=== PATIENT | female | born 1945 | race Caucasian/White ===

== ENCOUNTER 2025-04-06 11:52 | Outpatient (OUT) | payer MEDICARE, OTHER, SELFPAY ==
--- OUTSIDE RECORDS SUMMARY | 2025-04-06 11:54 | XMS_ITS | Encounter Summary ---
Author Organization [facility] Address [address] [facility] [place] [address] Care Team Providers Care Animal Chiropractor Name Role Phone Jakub Sands MD Primary Care Provider +[phone] Encounter Details Date Type Department Care Team (Latest Contact Info) Description 03/24/2025 Travel Social History Tobacco Use Types Packs/Day Years Used Date Smoking Tobacco: Never Smokeless Tobacco: Never Alcohol Use Standard Drinks/Week Comments Never 0 (1 standard drink = 0.6 oz pur e alcohol) Comments Unknown Sex and Gender Information Value Date Recorded Sex Assigned at Not on file Legal Sex Female 6:46 PM EDT Gender Identity Not on file Sexual Orientation Not on file documented as of this encounter Plan of Treatment Upcoming Encounters Date Type Department Care Team (Late st Contact Info) Description 10/06/2026 10:30 AM EST Office Visit [facility] [address] [place] [phone] Kevin Greer, PA [address] [place] [address] documented as of this encounter Visit Diagnoses Not on filedocumented in this encounter Care Teams Animal Chiropractor Relationship Specialty Start Date End Date Jakub Sands MD PCP - General Family Medicine 03/18/24 documented as of this encounter
--- OUTSIDE RECORDS SUMMARY | 2025-04-06 11:54 | XMS_ITS | Encounter Summary ---
Author Organization [employer] tem Address [facility] [place]-[id number] [address] [place] [address] Care Team Providers Care Sap Fico Architect Name Role Phone SreekanthJakub matias Primary Care Provider + [phone] Encounter Details Date Type Department Care Team (Late st Contact Info) Description 04/08/2024 Telephone [facility] - Family Medicine [address] [place] [phone] Marry Garcia CMA Social History Tobacco Use Types Packs/Day Years Used Date Smoking Tobacco: Never Alcohol Use Standard Drinks/Week Comments Defer 0 (1 standard drink = 0.6 oz pur e alcohol) PHQ-2 Answer Date Recorded Total Score 0 03/08/2024 Childcare Answer Date Recorded Childcare Unknown 04/21/2019 Employment Answer Date Recorded Employment Unknown 04/21/2019 Hunger Screening Answer Date Recorded Within the past 12 months we worried whether our food would run out before we got money to buy more. Never True 03/13/2024 Within the past 12 months th e food we bought just didn't last and we didn't have money to get more. Never True 03/13/2024 Purpose - Life Answer Date Recorded Purpose and direction in life Unknown Comments Unknown Sex and Gender Information Value Date Recorded Sex Assigned at Not on file Legal Sex Female 11:21 AM EDT Gender Identity Not on file Sexual Orientation Not on file documented as of this encounter Miscellaneous Notes * Telephone Encounter - Marry Garcia CMA - 04/08/2024 3:51 PM EDT Pt called stated she has really bad diarrhea for a week now and wanted to know if she could stop the mounjaro for a few weeks and asked if you could send something in for the diarrhea? * Telephone Encounter - VAL Hightower - 04/08/2024 3:51 PM EDT What else is going on, this is kind of an odd side effect of mounjaro, not that it can't happen butit is usually more associated with constipation that diarrhea. Has she felt ill in any other way? How often is she going? Does she have urgency, incontinence? This sounds more like a gastroenteritis if it has suddenly appeared. * Telephone Encounter - Linda Khan CMA - 04/08/2024 3:51 PM EDT Left message to call back documented in this encounter Plan of Treatment Upcoming Encounters Date Type Department Care Team (Late st Contact Info) Description 07/20/2025 11:00 AM EDT Office Visit [facility] - Family Medicine [address] [place] [address] Jakub Sands DO [address] [facility] [place] [address] documented as of this encounter Visit Diagnoses Not on filedocumented in this encounter Additional Health Concerns Assessment Noted Time PHQ-9 Depression Total Score: 0 03/08/20 24 9:36 AM EDT A Body Mass Index follow-up plan has been documented for the patient 03/08/2024 12:59 PM EDT documented as of this encounter Care Teams Sap Fico Architect Relationship Specialty Start Date End Date Jakub Sands DO [address] [place] [address] PCP - General Family Medicine 07/13/24 Salma Pacheco CCM Nurse - [employer] 08/12/24 documented as of this encounter
--- OUTSIDE RECORDS SUMMARY | 2025-04-06 11:54 | XMS_ITS | Encounter Summary ---
Author Organization [employer] Address [facility] [place][id number] [address] [place] [address] Care Team Providers Care Roll Or Tape Edge Machine Operator Name Role Phone Jakub Sands DO Primary Care Provider + [phone] Encounter Details Date Type Department Care Team ([facility] Contact Info) Description 10/15/2023 Orders Only [facility] - Family Medicine [address] [place] [phone] Magali Del Cid, DINKEY ENGINE MECHANIC-FIRER [employer] [address] [place] [address] [place] [address] Social History Tobacco Use Types Packs/Day Years Used Date Smoking Tobacco: Never Alcohol Use Standard Drinks/Week Comments Defer 0 (1 standard drink = 0.6 oz pur e alcohol) PHQ-2 Answer Date Recorded Total Score 6 10/01/2023 Childcare Answer Date Recorded Childcare Unknown 04/21/2019 Employment Answer Date Recorded Employment Unknown 04/21/2019 Hunger Screening Answer Date Recorded Within the past 12 months we worried whether our food would run out before we got money to buy more. Never True 10/01/2023 Within the past 12 months th e food we bought just didn't last and we didn't have money to get more. Never True 10/01/2023 Purpose - Life Answer Date Recorded Purpose and direction in life Unknown Comments Unknown Sex and Gender Information Value Date Recorded Sex Assigned at Not on file Legal Sex Female 11:21 AM EDT Gender Identity Not on file Sexual Orientation Not on file documented as of this encounter Plan of Treatment Upcoming Encounters Date Type Department Care Team ([facility] Contact Info) Description 07/20/2025 11:00 AM EDT Office Visit [facility] - Family Medicine [address] [place] [address] Jakub Sands DO [address] [facility] [place] [address] documented as of this encounter Procedures Procedure Name Priority Date/Time Associated Diagnosis Comments HM MAMMOGRAPHY Routine 10/08/2023 9:14 AM EST documented in this encounter Results * HM MAMMOGRAPHY (10/08/2023 9:14 AM EST) Anatomical Region Laterality Modality Other us Scanning Provider External HEALTH MAINTENANCE Fi nal Result documented in this encounter Visit Diagnoses Not on filedocumented in this encounter Additional Health Concerns Assessment Noted Time PHQ-9 Depression Total Score: 6 10/01/20 23 11:37 AM EST A Body Mass Index follow-up plan has been documented for the patient 01/13/2023 6:57 AM EST documented as of this encounter Care Teams Roll Or Tape Edge Machine Operator Relationship Specialty Start Date End Date Jakub Sands DO [address] [facility] [place] [address] PCP - General Family Medicine 07/13/24 Salma Pacheco [facility] 08/12/24 documented as of this encounter
--- OUTSIDE RECORDS SUMMARY | 2025-04-06 11:54 | XMS_ITS | Encounter Summary ---
Author Organization [employer] Address [facility] [place]-[id number] [address] [place] [address] Care Team Providers Care Heel Builder Machine Name Role Phone Jakub Sands DO Primary Care Provider + [phone] Reason for Visit * Reason Comments Med Refill Encounter Details Date Type Department Care Team (Late st Contact Info) Description 07/19/2022 Refill [facility] - Family Medicine [address] [place] [phone] Magali Del Cid, NUVIA-TROUSSEAU CONSULTANT [address] [place] [address] Social History Tobacco Use Types Packs/Day Years Used Date Smoking Tobacco: Never Assessed Childcare Answer Date Recorded Childcare Unknown 04/21/2019 Employment Answer Date Recorded Employment Unknown 04/21/2019 Purpose - Life Answer Date Recorded Purpose [...] - Family Medicine [address] [place] [phone] Jakub Sands DO [address] [place] [address] documented as of this encounter Visit Diagnoses Not on filedocumented in this encounter Care Teams Heel Builder Machine Relationship Specialty Start Date End Date Jakub Sands DO [address] [facility] [place] [address] PCP - General Family Medicine 07/13/24 Salma Pacheco CCM Nurse - [employer] 08/12/24 documented as of this encounter
--- OUTSIDE RECORDS SUMMARY | 2025-04-06 11:54 | XMS_ITS | Encounter Summary ---
Author Organization [employer] Address [facility] [place]-[id number] [address] [place] [address] Care Team Providers Care Pediatric Social Worker Name Role Phone Jakub Sands DO Primary Care Provider + [phone] Encounter Details Date Type Department Care Team (Late st Contact Info) Description 09/22/2024 Telephone [facility] - Family Medicine [address] [place] [phone] Jakub Sands DO [address], [facility] [place] [address] Social History Tobacco Use Types Packs/Day Years Used Date Smoking Tobacco: Never Smokeless Tobacco: Never Alcohol Use Standard Drinks/Week Comments Defer 0 (1 standard drink = 0.6 oz pur e alcohol) [facility] Utilities Answer Date Recorded In the past 12 months has [employer] electric, gas, oil, or water company threatened to shut off services in your home? No 09/03/2024 Social Connection and Isolat ion Panel [NHANES] Answer Date Recorded In a typical week, how many times do you talk on the phone with family, friends, or neighbors? More than three times a week 09/03/2024 How often do you get togethe r with friends or relatives? More than three times a week 09/03/2024 How often do you attend chur ch or nondenominational services? Never 09/03/2024 Do you belong to any clubs o r organizations such as denominational groups, unions, fraternal or athletic groups, or school groups? No 09/03/2024 How often do you attend meet ings of the clubs or organizations you belong to? Never 09/03/2024 Are you , , di vorced, , never , or living with a partner? 09/03/2024 AUDIT-C Answer Date Recorded Q1: How often do you have a drink containing alcohol? Never 09/03/2024 Q2: How many drinks containi ng alcohol do you have on a typical day when you are drinking? Patient does not drink Q3: How often do you have si x or more drinks on one occasion? Never 09/03/2024 Overall Financial Resource Strain (CARDIA) Answe r Date Recorded How hard is it for you to pa y for the very basics like food, housing, medical care, and heating? Not hard at all 09/03/2024 PHQ-2 Answer Date Recorded Total Score 0 06/03/2024 [facility] - Occupational Stress Questionnaire Answer Date Recorded Do you feel stress - tense, restless, nervous, or anxious, or unable to sleep at night because your mind is troubled all the time - these days? Only a little 09/03/2024 Exercise Vital Sign Answer Date Recorde d On average, how many days pe r week do you engage in moderate to strenuous exercise (like a brisk walk)? 0 days 09/03/2024 On average, how many minutes do you engage in exercise at this level? 0 min 09/03/2024 PRAPARE - Transportation Answer Date Re corded In the past 12 months, has l ack of transportation kept you from medical appointments or from getting medications? No 08/11 In the past 12 months, has l ack of transportation kept you from meetings, work, or from getting things needed for daily living? No 09/03/2024 Housing Instability Answer Date Recorde d Are you worried or concerned that in the next two months you may not have stable housing that you own, rent or stay in as a part of a household? No 09/03/2024 Childcare Answer Date Recorded Do problems getting child ca re make it difficult for you to work or study? No 09/03/2024 Employment Answer Date Recorded Do you need help finding a [facility] career center and/or a training program? No 09/03/2024 Hunger Screening Answer Date Recorded Within the past 12 months we worried whether our food would run out before we got money to buy more. Never True 07/13/2024 Within the past 12 months th e food we bought just didn't last and we didn't have money to get more. Never True 07/13/2024 Purpose - Life Answer Date Recorded I have a purpose and direction in my life. Agree 09/03/2024 Comments Unknown Sex and Gender Information Value Date Recorded Sex Assigned at Not on file Legal Sex Female 11:21 AM EDT Gender Identity Not on file Sexual Orientation Not on file documented as of this encounter Miscellaneous Notes * Telephone Encounter - Jakub Sands DO - 09/22/2024 11:57 AM EST I can send in a rx for colchicine if she would like documented in this encounter Plan of Treatment Upcoming Encounters Date Type Department Care Team (Late st Contact Info) Description 07/20/2025 11:00 AM EDT Office Visit [facility] - Family Medicine [address] [place] [address] Jakub Sands DO [address] [facility] [place] [address] documented as of this encounter Visit Diagnoses Diagnosis Essential hypertension- Primary Unspecified essential hypertension Chronic heart failure with preserved ejection fraction (CMS-HCC) documented in this encounter Additional Health Concerns Assessment Noted Time PHQ-9 Depression Total Score: 0 06/03/20 24 2:58 PM EDT A Body Mass Index follow-up plan has been documented for the patient 03/08/2024 12:59 PM EDT documented as of this encounter Care Teams Pediatric Social Worker Relationship Specialty Start Date End Date Jakub Sands DO [address] [facility] [place] [address] PCP - General Family Medicine 07/13/24 Salma Pacheco CCM Nurse - [employer] 08/12/24 documented as of this encounter
--- OUTSIDE RECORDS SUMMARY | 2025-04-06 11:54 | XMS_ITS | Encounter Summary ---
Author Organization [employer] Address [facility] [place]-[id number] [address] [place] [address] Care Team Providers Care Project Manager Entertainment And Media Name Role Phone SreekanthJakub matias Primary Care Provider + [phone] Encounter Details Date Type Department Care Team (Late st Contact Info) Description 03/12/2024 Telephone [facility] - Family Medicine [address] [place] [phone] Marry Garcia CMA Social History Tobacco Use [...] Telephone Encounter - Marry Garcia CMA - 03/12/2024 12:18 PM EDT Pt called stated that her foot pain is no better and has to use her walker and whant to know if there was a cream or something to numb the pain? * Telephone Encounter - VAL Hightower - 03/12/2024 12:18 PM EDT She can try topical voltaren gel, this is available over the counter * Telephone Encounter - Marry Garcia CMA - 03/12/2024 12:18 PM EDT She said ok thank you documented in this encounter Plan of Treatment Upcoming Encounters Date Type Department Care Team (Late st Contact Info) Description 07/20/2025 11:00 AM EDT Office Visit [facility] - Family Medicine [address] [place] [address] Jakub Sands DO [address], [place] [place] [address] documented as of this encounter Visit Diagnoses Not on filedocumented in this encounter Additional Health Concerns Assessment Noted Time PHQ-9 Depression Total Score: 0 03/08/20 24 9:36 AM EDT A Body Mass Index follow-up plan has been documented for the patient 03/08/2024 12:59 PM EDT documented as of this encounter Care Teams Project Manager Entertainment And Media Relationship Specialty Start Date End Date Jakub Sands DO [address] [facility] [place] [address] PCP - General Family Medicine 07/13/24 Salma Pacheco [facility] 08/12/24 documented as of this encounter
--- OUTSIDE RECORDS SUMMARY | 2025-04-06 11:54 | XMS_ITS | Clinical Summary ---
Author Organization [facility] Address [address] [place] [address] Care Team Providers Care Clinical Laboratory Scientist Name Role Phone Jakub Sands MD Primary Care Provider [phone] Allergies Active Allergy Reactions Criticality Noted Date Comments Ibuprofen Unknown,Rash Low 09/10/2017 Lidocaine Itching,Swelling,Unknown High 09/15/2017 Other Reaction(s): Swelling of the Eye Meperidine 09/05/2022 Nalbuphine Unknown Low 09/15/2017 Other Reaction(s): Other (See Comments) Pt states makes me loopy Other Reaction(s): become very giggly and unsteady Procaine Unknown 09/13/2019 Other Reaction(s): swelling of eye Medications oxyCODONE-aceta minophen (Percocet) 5-325 MG tablet Acti ve atorvastatin (Lipitor) 40 MG tablet Take 40 mg by mouth in the morning. 03/15/2024 Active ASPIRIN 81 PO Take 81 mg by mouth Daily Active Mounjaro 10 MG/0.5ML solution pen-injector Inject 0.5 mL under the skin every 7 (seven) days 11/17/2023 Active allopurinol (Zyloprim) 300 MG tablet Take 300 mg by mouth 06/04/2024 Active bisoprolol-hydr oCHLOROthiazide (Ziac) 10-6.25 MG tablet Take 1 tablet by mouth in the morning. 03/22/2024 Active fluticasone (Flonase) 50 MCG/ACT nasal spray 1 spray in each nostril Nasally Once a day Active BD Pen Needle Subha 2nd Gen 32G X 4 MM misc USE DIRECTED EVERY MORNING AND EVERY NIGHT AT BEDTIME 12/17/2023 Active pantoprazole (ProtoNix) 40 MG EC tablet Take 40 mg by mouth Daily as needed 06/03/2024 Active metFORMIN (Glucophage) 1000 MG tablet every 12 (twelve) hours Active olmesartan (BENIcar) 20 MG tablet Take 20 mg by mouth Daily 11/14/2023 Active insulin glargine (Lantus) 100 UNIT/ML injection Inject 30 Units under the skin at bedtime Active colchicine 0.6 MG tablet Take 0.6 mg by mouth 2 (two) times a day as needed 09/24/2024 Active Active Problems Problem Noted Date Diagnosed Date Arthritis of right shoulder region 07/30/2024 Artificial knee joint present 07/30/2024 Diabetes mellitus 07/30/2024 Difficulty walking 07/30/2024 Hyperlipidemia 07/30/2024 Left hand paresthesia 07/30/2024 Primary localized osteoarthrosis of shoulder reg ion 07/30/2024 Primary osteoarthritis of left knee 07/30/2024 Internal derangement of right shoulder Rotator cuff arthropathy of right shoulder 07/30 Shoulder arthritis 07/30/2024 Shoulder joint pain 07/30/2024 Status post left knee replacement 07/30/2024 Acute on chronic heart failu re with preserved ejection fraction 03/08/2024 Essential hypertension 09/03/2023 REBA (obstructive sleep apnea) 09/03/2023 Primary osteoarthritis of both knees 09/03/2023 Arthritis of right foot 02/11/2023 Obesity, morbid 02/11/2023 Nonrheumatic mitral valve regurgitation 10/28/20 22 (HFpEF) heart failure with preserved ejection fr action 09/05/2022 SOB (shortness of breath) 09/05/2022 Presence of right artificial shoulder joint 02/09 Encounters Date Type Department Care Team Description 03/24/2025 Travel from Last 3 Months Immunizations Immunization Administration Dates Next Due Influenza, High Dose Seasonal, Preservative Free 01/28/2020 Influenza, Seasonal, Quadrivalent, Adjuvanted ,09/06/2022 Influenza, Unspecified 08/29/2014 Influenza, injectable, MDCK, preservative free, quadrivalent 08/25/2018 Pneumococcal Conjugate PCV 13 11/18/2014 Pneumococcal Polysaccharide PPSV23 07/04/2010 Tdap 11/12/2023,03/28/2009 Zoster, live 11/30/2016 Social History Tobacco Use Types Packs/Day Years Used Date Smoking Tobacco: Never Smokeless Tobacco: Never Tobacco Cessation:Counseling Given: Not Answered Alcohol Use Standard Drinks/Week Comments Never 0 (1 standard drink = 0.6 oz pur e alcohol) Comments Unknown Sex and Gender Information Value Date Recorded Sex Assigned at Not on file Legal Sex Female 6:46 PM EDT Gender Identity Not on file Sexual Orientation Not on file Last Filed Vital Signs Vital Sign Reading Time Taken Comments Blood Pressure 140/94 08/04/2024 1:29 PM EDT Pulse 68 08/04/2024 1:29 PM EDT Temperature - - Respiratory Rate - - Oxygen Saturation - - Inhaled Oxygen Concentration - - Weight 111 kg (245 lb) 08/04/2024 1:29 PM EDT Height 165.1 cm (5' 5 ) 08/04/2024 1:29 PM EDT Body Mass Index 40.77 08/04/2024 1:29 PM EDT Plan of Treatment Upcoming Encounters Date Type Department Care Team (Late st Contact Info) Description 10/06/2026 10:30 AM EST Office Visit [facility] [address] [place] [address] Kevin Greer PA [address] [place] [address] Health Maintenance Due Date Last Done Comments Pneumococcal Vaccine: 65+ Ye ars (3 of 3 - PCV20 or PCV21) 11/18/2019 11/18/2014, 07/04/2010 Influenza Vaccine Completed 11/04/2024, , 09/06/2022, Additional history exists Insurance MEDICARE [facility] Care Teams Clinical Laboratory Scientist Relationship Specialty Start Date End Date Jakub Sands MD PCP - General Family Medicine 03/18/24
--- OUTSIDE RECORDS SUMMARY | 2025-04-06 11:54 | XMS_ITS | Encounter Summary ---
Author Organization [employer] Address [facility] [id number] [address] [place] [address] Care Team Providers Care Pack Operator Name Role Phone Jakub Sands DO Primary Care Provider + [phone] Encounter Details Date Type Department Care Team ([facility] Contact Info) Description 12/25/2023 Orders Only [facility] Internal Medicine - Family Medicine [address] [place] [phone] Magali Del Cid, FLAME GOUGER-PHYSICIAN/ALLERGY/IMMUNOLOGY [address] [facility] [place] [address] Social History Tobacco Use Types Packs/Day Years Used Date Smoking Tobacco: Never Alcohol Use Standard Drinks/Week Comments Defer 0 (1 standard drink = 0.6 oz pur e alcohol) PHQ-2 Answer Date Recorded Total Score 5 10/29/2023 Childcare Answer Date Recorded Childcare Unknown 04/21/2019 Employment Answer Date Recorded Employment Unknown 04/21/2019 Hunger Screening Answer Date Recorded Within the past 12 months we worried whether our food would run out before we got money to buy more. Never True 12/15/2023 Within the past 12 months th e food we bought just didn't last and we didn't have money to get more. Never True 12/15/2023 Purpose - Life Answer Date Recorded Purpose and direction in life Unknown Comments Unknown Sex and Gender Information Value Date Recorded Sex Assigned at Not on file Legal Sex Female 11:21 AM EDT Gender Identity Not on file Sexual Orientation Not on file documented as of this encounter Plan of Treatment Upcoming Encounters Date Type Department Care Team ([facility] Contact Info) Description 07/20/2025 11:00 AM EDT Office Visit [facility] - Family Medicine [address] [address] Jakub Sands DO [address] [place] [address] documented as of this encounter Procedures Procedure Name Priority Date/Time Associated Diagnosis Comments DIABETES EYE EXAM Routine 12/04/2023 12:43 PM EST documented in this encounter Results * HM DIABETES EYE EXAM (12/04/2023 12:43 PM EST) Magali Del Cid FLAME GOUGER-PHYSICIAN/ALLERGY/IMMUNOLOGY HEALTH MAINTENANCE Final Re sult MANUALLY TRANSCRIBED RESULTS documented in this encounter Visit Diagnoses Not on filedocumented in this encounter Additional Health Concerns Assessment Noted Time PHQ-9 Depression Total Score: 5 10/29/20 23 11:46 AM EST A Body Mass Index follow-up plan has been documented for the patient 01/13/2023 6:57 AM EST documented as of this encounter Care Teams Pack Operator Relationship Specialty Start Date End Date Jakub Sands DO [address] [place] [address] PCP - General Family Medicine 07/13/24 Salma Pacheco [facility] 08/12/24 documented as of this encounter
--- OUTSIDE RECORDS SUMMARY | 2025-04-06 11:54 | XMS_ITS | Encounter Summary ---
Author Organization [facility] Address [facility] [place]-[id number] [address] [place] [address] Care Team Providers Care Sql Server Consultant Name Role Phone Jakub Sands DO Primary Care Provider + [phone] Reason for Visit * Reason Onset Date Comments Med Refill 11/12/2023 Encounter Details Date Type Department Care Team (Late Contact Info) Description 11/12/2023 Refill [facility] - Family Medicine [address] [place] [phone] Magali Del Cid, COMPLETION MANAGER-CURATOR NATURAL HISTORY MUSEUM [address] [place] [address] Social History Tobacco Use Types Packs/Day Years [...] got money to buy more. Never True 10/29/2023 Within the past 12 months th e food we bought just didn't last and we didn't have money to get more. Never True 10/29/2023 Purpose - Life Answer Date Recorded Purpose [...] Medicine - Family Medicine [address] [place] [address] Jakub Sands DO [address], [place] [address] documented as of this encounter Visit Diagnoses Not on filedocumented in this encounter Additional Health Concerns Assessment Noted Time PHQ-9 Depression Total Score: 5 10/29/20 23 11:46 AM EST A Body Mass Index follow-up plan has been documented for the patient 01/13/2023 6:57 AM EST documented as of this encounter Care Teams Sql Server Consultant Relationship Specialty Start Date End Date Jakub Sands DO [address], [facility] [place] [address] PCP - General Family Medicine 07/13/24 Salma Pacheco [facility] 08/12/24 documented as of this encounter
--- OUTSIDE RECORDS SUMMARY | 2025-04-06 11:54 | XMS_ITS | Encounter Summary ---
Author Organization [facility] [employer] [facility] Address [facility] [id number] [address] [place] [address] Care Team Providers Care Melter Supervisor Open Hearth Furnace Name Role Phone Jakub Sands DO Primary Care Provider + [phone] Reason for Visit * Reason Onset Date Comments Med Refill 05/04/2024 Encounter Details Date Type Department Care Team (Late st Contact Info) Description 05/04/2024 Telephone [facility] Internal Medicine - Family Medicine [address] [place] [place] [phone] Marilyn Mao CMA Med Refill Social History Tobacco Use Types Packs/Day Years [...] encounter Miscellaneous Notes * Telephone Encounter - Marilyn Mao CMA - 05/04/2024 8:44 AM EDT Patient was in the ER back in March for Gout. She is having a flare up and wants to know if you can call her something in for it. * Telephone Encounter - Jakub Christian DO Shavon - 05/04/2024 8:44 AM EDT Okay but she should make an appointment to discuss suppressive therapy since she has had 2 flare-ups recently * Telephone Encounter - Marilyn Mao CMA - 05/04/2024 8:44 AM EDT Spoke with the patient and scheduled her an appt documented in this encounter Plan of Treatment Upcoming Encounters Date Type Department Care Team (Late st Contact Info) Description 07/20/2025 11:00 AM EDT Office Visit [facility] - Family Medicine [address] [place] [address] Jakub Sands DO [address], [facility] [place] [address] documented as of this encounter Visit Diagnoses Not on filedocumented in this encounter Additional Health Concerns Assessment Noted Time PHQ-9 Depression Total Score: 0 03/08/20 9:36 AM EDT A Body Mass Index follow-up plan has been documented for the patient 03/08/2024 12:59 PM EDT documented as of this encounter Care Teams Melter Supervisor Open Hearth Furnace Relationship Specialty Start Date End Date Jakub Sands DO [address] [place] [address] PCP - General Family Medicine 07/13/24 Salma Pacheco CCM Nurse - [facility] 08/12/24 documented as of this encounter
--- OUTSIDE RECORDS SUMMARY | 2025-04-06 11:54 | XMS_ITS | Encounter Summary ---
Author Organization [employer] Address [facility] [place]-[id number] [address] [place] [address] Care Team Providers Care Railway Track Plant Operator Name Role Phone Jakub Sands DO Primary Care Provider + [phone] Encounter Details Date Type Department Care Team ([facility] Contact Info) Description 04/08/2024 Orders Only [facility] Internal Medicine - Family Medicine [address] [place] [phone] Magali Del Cid, POISING INSPECTOR-PATHOLOGY LABORATORY TECHNOLOGIST [address] [place] [address] Social History Tobacco Use Types Packs/Day Years [...] Upcoming Encounters Date Type Department Care Team ([facility] Contact Info) Description 07/20/2025 11:00 AM EDT Office Visit [facility] - Family Medicine [address] [place] [address] Jakub Sands DO [address] [facility] [place] [address] documented as of this encounter Visit Diagnoses Not on filedocumented in this encounter Additional Health Concerns Assessment Noted Time PHQ-9 Depression Total Score: 0 03/08/20 24 9:36 AM EDT A Body Mass Index follow-up plan has been documented for the patient 03/08/2024 12:59 PM EDT documented as of this encounter Care Teams Railway Track Plant Operator Relationship Specialty Start Date End Date Jakub Sands DO [address] [place] [address] PCP - General Family Medicine 07/13/24 Salma Pacheco [facility] 08/12/24 documented as of this encounter
--- OUTSIDE RECORDS SUMMARY | 2025-04-06 11:54 | XMS_ITS | Encounter Summary ---
Author Organization [employer] Address [facility] [id number] [address] [place] [address] Care Team Providers Care Repairer Welding Equipment Name Role Phone Jakub Sands Primary Care Provider + [phone] Encounter Details Date Type Department Care Team (Late st Contact Info) Description 05/10/2024 Telephone [facility] - Family Medicine [address] [place] [phone] Marry Garcia CMA Social History Tobacco Use [...] Telephone Encounter - Marry Garcia CMA - 05/10/2024 4:20 PM EDT Pt called wanting a refill of her patroprazole but it looks like she doesn't take it anymore ? * Telephone Encounter - Jakub Sands DO - 05/10/2024 4:20 PM EDT Yes looks like Magali stopped it. She should take it every day. She has been taking it? * Telephone Encounter - Marry Garcia CMA - 05/10/2024 4:20 PM EDT She stated she only takes it once a week when needed * Telephone Encounter - Marry Garcia CMA - 05/10/2024 4:20 PM EDT She stated she has enough till she sees you the 25th and you guys can talk about it then documented in this encounter Plan of Treatment Upcoming Encounters Date Type Department Care Team (Late st Contact Info) Description 07/20/2025 11:00 AM EDT Office Visit [facility] - Family Medicine [address] [place] [address] Jakub Sands DO [address] [facility] [address] documented as of this encounter Visit Diagnoses Not on filedocumented in this encounter Additional Health Concerns Assessment Noted Time PHQ-9 Depression Total Score: 0 03/08/20 24 9:36 AM EDT A Body Mass Index follow-up plan has been documented for the patient 03/08/2024 12:59 PM EDT documented as of this encounter Care Teams Repairer Welding Equipment Relationship Specialty Start Date End Date Jakub Sands DO [address] [place] [address] PCP - General Family Medicine 07/13/24 Salma Pacheco [facility] 08/12/24 documented as of this encounter
--- OUTSIDE RECORDS SUMMARY | 2025-04-06 11:54 | XMS_ITS | Encounter Summary ---
Author Organization [employer] Address [facility] [id number] [address] [place] [address] Care Team Providers Care Flour Distributor Name Role Phone Jakub Sands Primary Care Provider + [phone] Encounter Details Date Type Department Care Team (Late st Contact Info) Description 09/07/2024 Telephone [facility] - Family Medicine [address] [place] [phone] Norm Mccarthy CMA Social History Tobacco Use Types Packs/Day Years Used Date Smoking Tobacco: Never Smokeless Tobacco: Never Alcohol Use Standard Drinks/Week Comments Defer 0 (1 standard drink = 0.6 oz pur e alcohol) [facility] Utilities Answer Date Recorded In the past 12 months has [employer] electric, gas, oil, or water company threatened [...] often do you attend chur ch or jehovah's witness services? Never 09/03/2024 Do you belong to any clubs o r organizations such as pentecostal groups, unions, fraternal or athletic groups, or [...] Answer Date Recorded Total Score 0 06/03/2024 [facility] [place] of Occupat ional Health - Occupational Stress [...] Recorded Do you need help finding a [facility] career center and/or a training program? [...] encounter Miscellaneous Notes * Telephone Encounter - Norm Mccarthy CMA - 09/07/2024 9:23 AM EDT ----- Message from Dr. Jakub Sands DO sent at 09/04/2024 1:36 PM EDT ----- Her A1c went up to 6.3%. we discussed cutting back on insulin and then increasing mounjaro but she just got a 3 month supply. Have her cut back to 26 units on insulin and in a couple months call her to send in higher Mounjaro dose. Her BMP was ok documented in this encounter Plan of Treatment Upcoming Encounters Date Type Department Care Team (Late st Contact Info) Description 07/20/2025 11:00 AM EDT Office Visit [facility] - Family Medicine [address] [place] [phone] Jakub Sands DO [address], [facility] [place] [address] documented as of this encounter Visit Diagnoses Not on filedocumented in this encounter Additional Health Concerns Assessment Noted Time PHQ-9 Depression Total Score: 0 06/03/20 24 2:58 PM EDT A Body Mass Index follow-up plan has been documented for the patient 03/08/2024 12:59 PM EDT documented as of this encounter Care Teams Flour Distributor Relationship Specialty Start Date End Date Jakub Sands DO [address], [facility] [place] [address] PCP - General Family Medicine 07/13/24 Salma Pacheco CCM Nurse - [facility] 08/12/24 documented as of this encounter
--- OUTSIDE RECORDS SUMMARY | 2025-04-06 11:55 | XMS_ITS | Clinical Summary ---
Author Organization [facility] Address [address] [place] [place] [address] Care Team Providers Care Lung Splitter Name Role Phone Jakub Sands Primary Care Provider + [phone] Allergies Active Allergy Reactions Criticality Noted Date Comments Lidocaine Swelling High 09/15/2017 Ibuprofen 09/10/2017 Nalbuphine Hcl Other (See Comments) Low 09/15/2017 Pt states makes me loopy Medications aspirin 81 MG tablet Take 81 mg by mouth daily Active lisinopril (PRINIVIL;ZESTR IL) 10 MG tablet Take 10 mg by mouth daily Active insulin glargine (LANTUS) 100 UNIT/ML injection vial Inject into the skin nightly Active metFORMIN (GLUCOPHAGE) 1000 MG tablet Take 1,000 mg by mouth daily (with breakfast) Active Liraglutide (VICTOZA) 18 MG/3ML SOPN SC injection Inject 0.6 mg into the skin daily Active Esomeprazole Magnesium (NEXIUM PO) Take by mouth Active atorvastatin (LIPITOR) 40 MG tablet Take 40 mg by mouth daily Active amLODIPine (NORVASC) 10 MG tablet Take 10 mg by mouth daily Active Active Problems No known active problems Resolved Problems Problem Noted Date Diagnosed Date Resolved Date Combined forms of age-relate d cataract of left eye 01/18/2018 01/19/2018 Combined forms of age-relate d cataract of right eye 09/15/2017 01/18/2018 Social History Tobacco Use Types Packs/Day Years Used Date Smoking Tobacco: Never Smokeless Tobacco: Never Alcohol Use Standard Drinks/Week Comments No 0 (1 standard drink = 0.6 oz pur e alcohol) Comments No Sex and Gender Information Value Date Recorded Sex Assigned at Not on file Legal Sex Female 8:34 AM EDT Gender Identity Not on file Sexual Orientation Not on file Last Filed Vital Signs Vital Sign Reading Time Taken Comments Blood Pressure 125/57 01/19/2018 10:45 AM EDT Pulse 86 01/19/2018 10:45 AM EDT Temperature 36.8 C (98.2 F) 01/19/2018 10:31 AM EDT Respiratory Rate 18 01/19/2018 10:45 AM EDT Oxygen Saturation 96% 01/19/2018 10:45 AM EDT Inhaled Oxygen Concentration - - Weight 122 kg (269 lb) 01/19/2018 9:33 AM EDT Height 165.1 cm (5' 5 ) 01/19/2018 9:33 AM EDT Body Mass Index 44.76 01/19/2018 9:33 AM EDT Plan of Treatment Not on file Medical Devices Implanted Type Area Flame Channeler Device Identifier Shelf Expiration Date Model / Serial / Lot Lens Iol Envista Mx60 23.5d - [id number] Implanted:Qty: 1 on 09/15/2017 by Nito Chu MD at [facility] Eye Right: Eye [employer]PMM 10/09/2019 MX60 23.5D / [id number] / Lens Iol Envista Mx60 20.5d - [id number] Implanted:Qty: 1 on 01/19/2018 by Nito Chu MD at [facility] Eye Left: Eye [employer]-PMM 01/07/2019 MX60 20.5D / [id number] / Insurance MEDICARE Member Subscriber Plan / Payer (Ef fective 2016-Present) Name:Mari Antonio Relation to Subscriber:Self Name:Mari Antonio Payer ID:Not on file Group ID:Not on file Type:Not on file Address: [address] [employer] Advance Directives * Full Code (Latest Code Status on File) Date Activated Date Inactivated Comments 01/19/2018 10:42 AM 01/19/2018 1:09 PM * Full Code Date Activated Date Inactivated Comments 01/19/2018 9:07 AM 01/19/2018 10:42 AM * Full Code Date Activated Date Inactivated Comments 09/15/2017 10:31 AM 09/15/2017 12:59 PM * Full Code Date Activated Date Inactivated Comments 09/15/2017 9:17 AM 09/15/2017 10:31 AM Care Teams Lung Splitter Relationship Specialty Start Date End Date Jakub Sands DO PCP - General 09/12/17
--- OUTSIDE RECORDS SUMMARY | 2025-04-06 11:55 | XMS_ITS | Encounter Summary ---
Author Organization [employer] [facility] tem Address [facility] [place]-[id number] [address] [place] [address] Care Team Providers Care Traffic Operator Name Role Phone Jakub Sands DO Primary Care Provider + [phone] Reason for Visit * Reason Comments Med Refill Encounter Details Date Type Department Care Team (Late Contact Info) Description 01/30/2023 Refill [facility] - Family Medicine [address] [place] [address] Magali Del Cid, DIAGNOSTIC MEDICAL SONOGRAPHER-AUTOMOBILE DAMAGE FIELD APPRAISER [address] [facility] [place] [address] Social History Tobacco Use Types Packs/Day Years Used Date Smoking Tobacco: Never Alcohol Use Standard Drinks/Week Comments Defer 0 (1 standard drink = 0.6 oz pur e alcohol) PHQ-2 Answer Date Recorded Total Score 0 01/09/2023 Childcare Answer Date Recorded Childcare Unknown 04/21/2019 Employment Answer Date Recorded Employment Unknown 04/21/2019 Purpose - Life Answer Date Recorded Purpose and direction in life Unknown Comments Unknown Sex and Gender Information Value Date Recorded Sex Assigned at Not on file Legal Sex Female 11:21 AM EDT Gender Identity Not on file Sexual Orientation Not on file COVID-19 Exposure Response Date Recorded In the last month, have you been in contact with someone who was confirmed or suspected to have Coronavirus / COVID-19? Yes 01/08/2023 4:11 PM EST documented as of this encounter Plan of Treatment Upcoming Encounters Date Type Department Care Team (Late Contact Info) Description 07/20/2025 11:00 AM EDT Office Visit [facility] - Family Medicine [address] [place] [address] Jakub Sands DO [address] [place] [address] documented as of this encounter Visit Diagnoses Not on filedocumented in this encounter Additional Health Concerns Assessment Noted Time PHQ-9 Depression Total Score: 0 01/10/20 23 1:09 PM EST A Body Mass Index follow-up plan has been documented for the patient 01/13/2023 6:57 AM EST documented as of this encounter Care Teams Traffic Operator Relationship Specialty Start Date End Date Jakub Sands DO [address] [facility] [place] [address] PCP - General Family Medicine 07/13/24 Salma Pacheco [facility] 08/12/24 documented as of this encounter
--- OUTSIDE RECORDS SUMMARY | 2025-04-06 11:55 | XMS_ITS | Encounter Summary ---
Author Organization [employer] Address [id number][id number] [address] [place] [address] Care Team Providers Care Car Wiper Name Role Phone Jakub Sands DO Primary Care Provider + [phone] Reason for Visit * Reason Onset Date Comments Med Refill 10/21/2022 Encounter Details Date Type Department Care Team (Late Contact Info) Description 10/21/2022 Refill [facility] - Family Medicine [address] [place] [phone] Marilyn Mao CMA Social History Tobacco Use Types Packs/Day Years Used Date Smoking Tobacco: Never Childcare Answer Date Recorded Childcare Unknown 04/21/2019 [...] or suspected to have Coronavirus / COVID-19? No / Unsure 10/08/2022 9:36 AM EST documented as of this encounter Plan of Treatment Upcoming Encounters Date Type Department Care Team (Late Contact Info) Description 07/20/2025 11:00 AM EDT Office Visit [facility] - Family Medicine [address] [place] [address] Jakub Sands DO [address], [facility] [place], [place] [id number] documented as of this encounter Visit Diagnoses Not on filedocumented in this encounter Care Teams Car Wiper Relationship Specialty Start Date End Date Jakub Sands DO [address], [facility] [place] [address] PCP - General Family Medicine 07/13/24 Salma Pacheco [facility] 08/12/24 documented as of this encounter
--- OUTSIDE RECORDS SUMMARY | 2025-04-06 11:55 | XMS_ITS | Encounter Summary ---
Author Organization [employer] Address [id number] [address] [place] [address] Care Team Providers Care Chemist Instrumentation Name Role Phone Jakub Sands DO Primary Care Provider + [phone] Encounter Details Date Type Department Care Team (Late st Contact Info) Description 10/05/2024 Telephone [facility] Internal Medicine - Family Medicine [address] [place] [phone] Jakub Sands DO [address], [place] [address] Social History Tobacco Use Types Packs/Day Years Used Date Smoking Tobacco: Never Smokeless Tobacco: Never Alcohol Use Standard Drinks/Week Comments Defer 0 (1 standard drink = 0.6 oz pur e alcohol) [facility] Utilities Answer Date Recorded In the past 12 months has [employer] electric, gas, oil, or water company threatened [...] often do you attend chur ch or adventism services? Never 09/03/2024 Do you belong to any clubs o r organizations such as yazidi groups, unions, fraternal or athletic groups, or [...] Answer Date Recorded Total Score 0 06/03/2024 [facility] - Occupational [...] Recorded Do you need help finding a [facility] career center and/or a training program? [...] encounter Miscellaneous Notes * Telephone Encounter - Razia Morton - 10/05/2024 10:55 AM EST When was the last Refill? Last ordered 03/15/24 #90 with 1 refill. Pt reports last p/u in June. Is this medication Historical? [place] of preferred Pharmacy? [facility] When was the last OV with provider? 09/03/24 When is the next scheduled visit? Nothing scheduled currently * Telephone Encounter - Razia Morton - 10/05/2024 10:55 AM EST What medication? * Telephone Encounter - Razia Morton - 10/05/2024 10:55 AM EST We will get it sent in for her documented in this encounter Plan of Treatment Upcoming Encounters Date Type Department Care Team (Late st Contact Info) Description 07/20/2025 11:00 AM EDT Office Visit [facility] - Family Medicine [address] [place] [phone] Jakub Sands DO [address], [place] [address] documented as of this encounter Visit Diagnoses Diagnosis Essential hypertension- Primary Unspecified essential hypertension Chronic heart failure with preserved ejection fraction (CMS-HCC) documented in this encounter Additional Health Concerns Assessment Noted Time PHQ-9 Depression Total Score: 0 06/03/20 2:58 PM EDT A Body Mass Index follow-up plan has been documented for the patient 03/08/2024 12:59 PM EDT documented as of this encounter Care Teams Chemist Instrumentation Relationship Specialty Start Date End Date Jakub Sands DO [address], [place] [address] PCP - General Family Medicine 07/13/24 Salma Pacheco [facility]12/24 documented as of this encounter
--- OUTSIDE RECORDS SUMMARY | 2025-04-06 11:55 | XMS_ITS | Encounter Summary ---
Author Organization [employer] s tem Address [id number] [address] [place] [address] Care Team Providers Care Wall Washer Name Role Phone Jakub Sands DO Primary Care Provider + [phone] Reason for Visit * Reason Comments Med Refill Encounter Details Date Type Department Care Team (Late st Contact Info) Description 08/29/2022 Refill [facility] - Family Medicine [address] [place] [phone] Magali Del Cid, NUVIA-PUNCHBOARD STUFFER [address] [place] [address] Social History Tobacco Use Types Packs/Day Years [...] - Family Medicine [address] [place] [phone] Jakub Sands DO [address] [place] [address] documented as of this encounter Visit Diagnoses Not on filedocumented in this encounter Care Teams Wall Washer Relationship Specialty Start Date End Date Jakub Sands DO [address] [facility], [place] [address] PCP - General Family Medicine 07/13/24 Salma Pacheco [facility]CM Nurse - [facility] 08/12/24 documented as of this encounter
--- OUTSIDE RECORDS SUMMARY | 2025-04-06 11:55 | XMS_ITS | Encounter Summary ---
Author Organization [employer] s tem Address [facility]-[id number] [address] [place] [address] Care Team Providers Care Missile Inspector Preflight Name Role Phone Jakub Sands DO Primary Care Provider + [phone] Reason for Visit * Reason Comments Med Refill Encounter Details Date Type Department Care Team (Late st Contact Info) Description 05/02/2023 Refill [facility] Medicine - Family Medicine [address] [place] [phone] Magali Del Cid, BALL POINTS INSPECTOR-UNDERCOATER [address] [place] [address] [place] [address] Social History Tobacco Use Types Packs/Day Years Used Date Smoking Tobacco: Never Alcohol Use Standard Drinks/Week Comments Defer 0 (1 standard drink = 0.6 oz pur e alcohol) PHQ-2 Answer Date Recorded Total Score 0 04/09/2023 Childcare Answer Date Recorded Childcare Unknown 04/21/2019 [...] Medicine - Family Medicine [address] [place] [address] Jakub Sands DO [address], [place] [address] documented as of this encounter Visit Diagnoses Not on filedocumented in this encounter Additional Health Concerns Assessment Noted Time PHQ-9 Depression Total Score: 0 04/09/20 23 10:25 AM EDT A Body Mass Index follow-up plan has been documented for the patient 01/13/2023 6:57 AM EST documented as of this encounter Care Teams Missile Inspector Preflight Relationship Specialty Start Date End Date Jakub Sands DO [address] [facility], [place] [address] PCP - General Family Medicine 07/13/24 Salma Pacheco [facility] Nurse - [facility] 08/12/24 documented as of this encounter
--- OUTSIDE RECORDS SUMMARY | 2025-04-06 11:55 | XMS_ITS | Encounter Summary ---
Author Organization [employer] Address [id number] [address] [place] [address] Care Team Providers Care Marble Machine Tender Name Role Phone Jakub Sands DO Primary Care Provider + [phone] Encounter Details Date Type Department Care Team ([facility] Contact Info) Description 01/30/2023 Orders Only [facility] - Family Medicine [address] [place] [phone] Magali Del Cid, OIL PUMP STATION OPERATOR CHIEF-ETCHER APPRENTICE [address] [facility] [address] [place], [place] [id number] Type 2 diabetes mellitus without complication, with long-term current use of insulin ([facility]) (Primary Dx); Mixed hyperlipidemia Social History Tobacco Use Types Packs/Day Years [...] Upcoming Encounters Date Type Department Care Team ([facility] Contact Info) Description 07/20/2025 11:00 AM EDT Office Visit [facility] - Family Medicine [address] [place] [phone] Jakub Sands DO [address], [place] [address] documented as of this encounter Results * Thyroid profile includes TSH FT4 (02/08/2023 11:00 AM EDT) Pathologist [facility] TSH 0.97 0.49 - 4.67 uIU/mL 02/08/2023 4:06 PM EDT [facility] T4, free 0.88 0.61 - 1.60 ng/dL 02/08/2023 4:07 PM EDT [facility] PLASMA 02/08/2023 11:0 0 AM EDT 02/08/2023 11:02 AM EDT Magali Del Cid OIL PUMP STATION OPERATOR CHIEF-ETCHER APPRENTICE LAB BLOOD ORDERABLES Final Result [facility] [address] [place] [address] * (ABNORMAL) Comprehensive metabolic panel (02/08/2023 11:00 AM EDT) Pathologist [facility] Sodium 140 134 - 146 mmol/L 02/08/2023 3:58 PM EDT [facility] Potassium, Bld 4.9 3.5 - 5.0 mmol/L 02/08/2023 3:58 PM EDT [facility] Chloride 102 98 - 109 mmol/L 02/08/2023 3:58 PM EDT [facility] CO2 28 22 - 32 mmol/L 02/08/2023 3:58 PM EDT [facility] Anion gap 10 5 - 15 mmol/L 02/08/2023 3:58 PM EDT [facility] BUN 27 5 - 27 mg/dL 02/08/2023 3:58 PM EDT [facility] Creatinine 0.86 0.40 - 1.00 mg/dL 02/08/2023 3:58 PM EDT [facility] Comment:METHOD TRACEABLE TO IDMS STANDARD Glucose 142(H) 65 - 99 mg/dL 02/08/2023 3:58 PM EDT [facility] Calcium 8.2(L) 8.5 - 10.5 mg/dL 02/08/2023 3:58 PM EDT [facility] Total Protein 6.1 6.0 - 8.0 g/dL 02/08/2023 3:58 PM EDT [facility] Albumin 3.6 3.2 - 5.3 g/dL 02/08/2023 3:58 PM EDT [facility] Alkaline Phosphatase 57 39 - 130 U/L 02/08/2023 3:58 PM EDT [facility] AST 12 0 - 41 U/L 02/08/2023 3:58 PM EDT [facility] ALT 16 0 - 31 U/L 02/08/2023 3:58 PM EDT [facility] Total bilirubin 1.0 0.3 - 1.2 mg/dL 02/08/2023 3:58 PM EDT [facility] eGFR (CKD-EPI)non-rac e dependent 70 >59 ml/min/1.7 3sq.m 02/08/2023 3:58 PM EDT [facility] Comment: Reported eGFR is based on the CKD-EPI 2020 equation that does not use a race coefficient. Blood (PLASMA) 02/08/2023 11 :00 AM EDT 02/08/2023 11:02 AM EDT us Magali Del Cid OIL PUMP STATION OPERATOR CHIEF-ETCHER APPRENTICE LAB BLOOD ORDERABLES Final Result ANGELIQUE [facility] [address] [place] [address] * (ABNORMAL) Lipid profile (02/08/2023 11:00 AM EDT) Cholesterol 110(L) 150 - 200 mg/dL 02/08/2023 3:58 PM EDT [facility] Triglycerides 127 27 - 150 mg/dL 02/08/2023 3:58 PM EDT [facility] HDL Cholesterol 45 >39 mg/dL 3:58 PM EDT [facility] Comment: HDL <40 mg/dL - High Risk HDL > or = 40mg/dL- Desirable HDL >60 mg/dL - Negative Risk VLDL 25 0 - 30 mg/dL 02/08/2023 3:58 PM EDT [facility] LDL (calc) 40 <130 mg/dL 02/08/2023 3:58 PM EDT [facility] Comment: LDL <100 mg/dL - Desirable LDL >160 mg/dL - High Risk Cholesterol:HDL Ratio 2.4 1.0 - 5.0 02/08/2023 3:58 PM EDT [facility] Blood (PLASMA) 02/08/2023 11 :00 AM EDT 02/08/2023 11:02 AM EDT Magali Del Cid OIL PUMP STATION OPERATOR CHIEF-ETCHER APPRENTICE LAB BLOOD ORDERABLES Final Result ANGELIQUE [facility] [address] [facility], [address] [place] [address] * Microalbumin - Albumin: Creatinine Urine Ratio (02/08/2023 11:00 AM EDT) Microalbumin urine 1.2 0.0 - 1.9 mg/dL 02/08/2023 4:03 PM EDT [facility] Urine creat 64.06 mg/dL 02/08/2023 4:03 PM EDT [facility] Alb/creat ratio 18.7 0.0 - 30.0 mg/g creat 02/08/2023 4:03 PM EDT [facility] Urine / Unknown 02/08/2023 1 1:00 AM EDT 02/08/2023 11:02 AM EDT Magali Magda Del Cid APRN-ETCHER APPRENTICE URINE ORDERABLES Final Resu lt [facility] [address] [place] [address] * (ABNORMAL) Hemoglobin A1c (02/08/2023 11:00 AM EDT) Hemoglobin A1C 7.1(H) 4.4 - 6.4 % 02/08/2023 4:09 PM EDT [facility] Average glucose 157 mg/dL 4:09 PM EDT [facility] Blood (PLASMA) 02/08/2023 11 :00 AM EDT 02/08/2023 11:02 AM EDT Magali Magda Del Cid APRN-ETCHER APPRENTICE LAB BLOOD ORDERABLES Final Result [facility] documented in this encounter Visit Diagnoses Diagnosis Type 2 diabetes mellitus without complication, with long-term current use of insulin ([facility])- Primary Mixed hyperlipidemia documented in this encounter Additional Health Concerns Assessment Noted Time PHQ-9 Depression Total Score: 0 01/10/20 23 1:09 PM EST A Body Mass Index follow-up plan has been documented for the patient 01/13/2023 6:57 AM EST documented as of this encounter Care Teams Marble Machine Tender Relationship Specialty Start Date End Date Jakub Sands DO [address] [facility], [place] [address] PCP - General Family Medicine 07/13/24 Salma Pacheco CCM Nurse - [employer] 08/12/24 documented as of this encounter
--- OUTSIDE RECORDS SUMMARY | 2025-04-06 11:55 | XMS_ITS | Clinical Summary ---
Author Organization [employer] Address [id number] [address] [place] [address] Care Team Providers Care Learn To Swim Instructor Name Role Phone Jakub Sands Primary Care Provider [phone] Allergies Active Allergy Reactions Criticality Noted Date Comments Meperidine 09/05/2022 Lidocaine Swelling,Itching High 09/15/2017 Ibuprofen 11/26/2018 Nalbuphine Other (See Comments) Low 09/15/2017 Pt states makes me loopy Procaine 08/30/2022 Medications aspirin 81 mg Take 1 tablet (81 mg total) by mouth in the morning. Active fluticasone propionate (FLONASE) 50 mcg/actuation nasal spray Active pen needle, diabetic 32 gauge x 1/4 needle 1 Unit by miscellaneous route in the morning and at bedtime. To administer insulin and victoza daily 200 each 5 04/03/20 23 Active pantoprazole (PROTONIX) 40 mg EC tablet Take 1 tablet (40 mg total) by mouth daily as needed (heartburn). 90 tablet 06/03/20 24 Active insulin glargine (LANTUS SOLOSTAR U-100 INSULIN) 100 unit/mL (3 mL) insulin pen Inject 26 Units under the skin in the morning. 09/04/20 24 Active bisoprolol-hy droCHLOROthia zide (ZIAC) 10-6.25 mg per tablet Take 1 tablet by mouth every morning. 90 tablet 1 09/27/20 24 Active atorvastatin (LIPITOR) 40 mg tablet Take 1 tablet (40 mg total) by mouth every morning. 90 tablet 1 10/05/20 24 Active tirzepatide (MOUNJARO) 12.5 mg/0.5 mL pen injectorIndic ations:Type 2 diabetes mellitus without complication, with long-term current use of insulin ([facility]) Inject 12.5 mg under the skin once a week. 2 mL 2 11/01/20 Active Additional Information Patient not taking.Reason: stopped two weeks ago., Reported on 03/17/2025 olmesartan (BENICAR) 20 mg tablet TAKE 1 TABLET(20 MG) BY MOUTH IN THE MORNING 90 tablet 1 11/21/19 25 Active allopurinoL (ZYLOPRIM) 300 mg tablet TAKE 1 TABLET(300 MG) BY MOUTH IN THE MORNING 30 tablet 5 12/14/19 25 Active acetaminophen (TYLENOL EXTRA STRENGTH) 500 mg tablet Take 1 tablet (500 mg total) by mouth every 6 (six) hours as needed for pain. Active metFORMIN (GLUCOPHAGE) 1000 mg tablet TAKE 1 TABLET(1000 MG) BY MOUTH IN THE MORNING AND AT BEDTIME 180 tablet 1 03/09/20 25 Active LORazepam (ATIVAN) 0.5 mg tabletIndicat ions:Dizzines s Take 1 hour before procedure 1 tablet 04/01/20 25 Active oxyCODONE-henry taminophen (PERCOCET) 5-325 mg per tablet Take 1 tablet by mouth every 6 (six) hours as needed. 07/28/20 24 2024 Discontinued(T herapy completed) colchicine (COLCRYS) 0.6 mg tablet Take 1 tablet (0.6 mg total) by mouth 2 (two) times a day as needed for muscle/joint pain (gout). 30 tablet 09/24/20 24 2024 Discontinued(T herapy completed) metFORMIN (GLUCOPHAGE) 1000 mg tablet Take 1 tablet (1,000 mg total) by mouth in the morning and at bedtime. 180 tablet 1 09/27/20 24 2024 Discontinued LORazepam (ATIVAN) 0.5 mg tabletIndicat ions:Dizzines s Take 1 hour before procedure 1 tablet 03/17/20 25 2024 Discontinued(R eorder) Active Problems Patient Care Coordination No te Formatting of this note migh t be different from the original. Hypertension & Heart Failure Care Plan Nurse to instruct on: the importance of preventative screenings and what they mean to your health -AWV done, discussed vaccines 03/16/25 SA RN the importance of your care plan the purpose of your medications and the importance of adherence proper use of your blood pressure meter and scale your Hypertension and Heart Failure, its diagnosis and treatment the importance of recognizing blurry vision, clammy skin, dizziness, facial flushing, fatigue, headache, lightheadedness, nosebleeds, and shortness of breath as a S&S of your Hypertension 11/01/24 CC RN -03/16/25 SA RN the importance of recognizing bringing up sputum when coughing, difficulty lying flat to sleep, discomfort or swelling to the abdomen, dry hacking cough, loss of appetite, persistent cough, new or worsening dizziness, confusion, sadness, depression, shortness of breath, and swelling in the feet, ankles, or legs as a S&S of your Heart Failure -03/16/25 VIPIN IVY Nurse to assist in: scheduling your appointments, as needed setting a goal to address risk of falling, check blood pressure, continue with current treatment plans, create a safe home environment, do regular physical activity, increase joint mobility and range of motion, maintain medication compliance, and weigh self daily Patient to verbalize understanding of: the importance of your care plan keeping a written list of your medications preventative screenings and what they mean to your health your medications and the importance of adherence your Hypertension, its diagnosis, process and treatment your Heart Failure, its diagnosis, process and treatment the importance of recognizing blurry vision, clammy skin, dizziness, facial flushing, fatigue, headache, lightheadedness, nausea, nosebleeds, and shortness of breath as a S&S of your Hypertension the importance of recognizing bringing up sputum when coughing, difficulty lying flat to sleep, discomfort or swelling to the abdomen, dry hacking cough, loss of appetite, persistent cough, new or worsening dizziness, confusion, sadness, depression, shortness of breath, and swelling in the feet, ankles, or legs as a S&S of your Heart Failure Patient to commit to: address risk of falling check blood pressure continue with current treatment plans create a safe home environment do regular physical activity increase joint mobility and range of motion maintain medication compliance weigh self daily Diabetes & Gout Care Plan Nurse to instruct on: proper use of your glucometer your Gout and Diabetes, its diagnosis and treatment -Reviewed colchicine and how to take. 09/24/24 MIKHAIL LEE -Reviewed insulin dose and PCP recommendations regarding insulin and Mounjaro. 10/05/24 MIKHAIL LEE the importance of recognizing Heat, intense joint pain, Redness, and Swelling as a S&S of your Gout -Educated on s/s of Gout. Reviewed foods high in purines. 09/22/24 MIKHAIL LEE -Reviewed s/s of Gout. Pt confirms she has picked up colchicine. 10/05/24 MIKHAIL LEE the importance of recognizing cuts/bruises that are slow to heal, extreme fatigue, feeling very hungry - even though you are eating, feeling very thirsty, frequent urination, fruity-smelling breath, headaches, and vision changes that seem to fluctuate as a S&S of your Diabetes -Educated on s/s of hypoglycemia/hyperglycemia. 09/22/24 MIKHAIL LEE Nurse to assist in: setting a goal to check blood glucose and measure HbA1c -03/16/25 taking BG daily VIPIN IVY Patient to verbalize understanding of: your Gout, its diagnosis, process and treatment your Diabetes, its diagnosis, process and treatment -Encouraged glucose monitoring and logging. 09/24/24 MIKHAIL LEE the importance of recognizing Heat, intense joint pain, Redness, and Swelling as a S&S of your Gout the importance of recognizing cuts/bruises that are slow to heal, extreme fatigue, feeling very hungry - even though you are eating, feeling very thirsty, frequent urination, fruity-smelling breath, headaches, and vision changes that seem to fluctuate as a S&S of your Diabetes Patient to commit to: check blood glucose -03/16/25 VIPIN IVY measure HbA1c 2023 Wellness Goals: Over the next 12 months, Patient will go to appointments with: Primary Care Provider 09/03/2024 MIKHAIL LEE Orthopaedic Surgery 10/01/2024 Over the next 12 months, Patient will complete the following tests, immunizations, and preventative screenings: Shingles vaccine Annual Wellness Visit COVID-19 Vaccination Flu vaccine 2023 Education: 08/12/24: Discussed upcoming surgery, CCM and completed Med[facility]. Updated and mailed 2023 Wellness Goals. MIKHAIL LEE 11/01/24 SN mailed education on healthy holiday food choices JOSE LEW 2024 Wellness Goals: [03/16/2025] SA LEW Added: Over the next 12 months, Patient will go to appointments with: Primary Care Provider 03/17/2025 Over the next 12 months, Patient will complete the following tests, immunizations, and preventative screenings: COVID-19 Vaccination Shingles vaccine Flu vaccine 2024 Education: Discussed dizziness 03/16/25 Problem Noted Date Diagnosed Date Gastroesophageal reflux disease 09/03/2024 Essential hypertension 09/03/2023 Primary osteoarthritis of both knees 09/03/2023 REBA (obstructive sleep apnea) 09/03/2023 Arthritis of right foot 02/11/2023 02/12/20 Obesity, morbid 02/11/2023 Nonrheumatic mitral valve regurgitation 10/28/20 22 (HFpEF) heart failure with preserved ejection fr action 09/05/2022 Presence of right artificial shoulder joint 02/09 Diabetes mellitus Hyperlipidemia Resolved Problems Problem Noted Date Diagnosed Date Resolved Date Acute on chronic heart failu re with preserved ejection fraction 03/08/2024 09/03/2024 SOB (shortness of breath) 09/05/2022 Encounters Date Type Department Care Team Description 04/01/2025 Refill [facility] [address] [place] [address] Maddy Baxter CMA Dizziness 03/21/2025 Telephone [facility] [address] [place] [address] Marry Garcia CMA 03/17/2025 11:30 AM EDT Office Visit [facility] [address] [place] [address] Jakub Sands DO Type 2 diabetes mellitus without complication, with long-term current use of insulin ([facility]) (Primary Dx); Chronic heart failure with preserved ejection fraction ([facility]); Obesity, morbid ([facility]); Dizziness; Mixed hyperlipidemia; Essential hypertension; Gout, unspecified cause, unspecified chronicity, unspecified site 03/17/2025 Travel 03/16/2025 Telephone [facility] [address] [place] [address] Jakub Sands DO 03/16/2025 Patient Outreach [facility] [address] [place] [address] Jakub Sands, Essential hypertension (Primary Dx); Chronic heart failure with preserved ejection fraction (CMS-HCC) 03/09/2025 Refill [facility] - Family [facility] [address] [place] [address] Jakub Sands, 03/04/2025 Patient Outreach [facility] - Family [facility] [address] [place] [address] Jakub Sands, Essential hypertension (Primary Dx); Chronic heart failure with preserved ejection fraction ([facility]) 02/08/2025 Patient Outreach [facility] - Family [facility] [address] [place] [address] Jakub Sands, Chronic heart failure with preserved ejection fraction (CMS-HCC) (Primary Dx); Essential hypertension 02/01/2025 Telephone [facility] [address] [place] [address] Marilyn Mao CMA 01/12/2025 Patient Outreach [facility] [address] [place] [address] Jakub Sands, Type 2 diabetes mellitus without complication, with long-term current use of insulin ([facility]) (Primary Dx); Chronic heart failure with preserved ejection fraction ([facility]) from Last 3 Months Immunizations Immunization Administration Dates Next Due Influenza High Dose Preservative Free IM 024,01/28/2020 Influenza Vaccine, Quadrivalent, Adjuvanted 01/2024,09/06/2022 Influenza, Injectable, Mdck, Preservative Free, Quad 08/25/2018 Influenza, Unspecified 09/06/2022,08/29/2014 Pneumococcal Conjugate 13-Valent 11/18/2014 Pneumococcal Polysaccharide 07/04/2010 Tdap 11/12/2023,03/28/2009 Zoster Live 11/30/2016 Family History Medical History Relation Name Comments Hypertension Father Stroke Mother Relation Name Status Comments Father Mother Social History Tobacco Use Types Packs/Day Years Used Date Smoking Tobacco: Never Smokeless Tobacco: Never Tobacco Cessation:Counseling Given: Not Answered Alcohol Use Standard Drinks/Week Comments Defer 0 (1 standard drink = 0.6 oz pur e alcohol) [facility] Utilities Answer Date Recorded In the past 12 months has th e electric, gas, oil, or water company threatened to shut off services in your home? No 09/03/2024 Social Connection and Isolat ion Panel [NHANES] Answer Date Recorded In a typical week, how many times do you talk on the phone with family, friends, or neighbors? More than three times a week 01/06/2025 How often do you get togethe r with friends or relatives? More than three times a week 01/06/2025 How often do you attend chur ch or pentecostalism services? Never 01/06/2025 Do you belong to any clubs o r organizations such as presybeterian groups, unions, fraternal or athletic groups, or school groups? No 01/06/2025 How often do you attend meet ings of the clubs or organizations you belong to? Never 01/06/2025 Are you , , di vorced, , never , or living with a partner? 01/06/2025 AUDIT-C Answer Date Recorded Q1: How often [...] PHQ-2 Answer Date Recorded Total Score 0 03/17/2025 [facility] [place] [facility] Occupat ional Health - Occupational Stress [...] Recorded Do you need help finding a [facility] career center and/or a training program? No 09/03/2024 Hunger Screening Answer Date Recorded Within the past 12 months we worried whether our food would run out before we got money to buy more. Never True 03/17/2025 Within the past 12 months th e food we bought just didn't last and we didn't have money to get more. Never True 03/17/2025 Purpose - Life Answer Date Recorded I have a purpose and direction in my life. Agree 09/03/2024 Comments Unknown Sex and Gender Information Value Date Recorded Sex Assigned at Not on file Legal Sex Female 11:21 AM EDT Gender Identity Not on file Sexual Orientation Not on file Last Filed Vital Signs Vital Sign Reading Time Taken Comments Blood Pressure 138/70 03/17/2025 11:45 AM EDT Pulse 63 03/17/2025 11:45 AM EDT Temperature 36.4 C (97.5 F) 03/17/2025 11:45 AM EDT Respiratory Rate 20 03/17/2025 11:45 AM EDT Oxygen Saturation 94% 03/17/2025 11:45 AM EDT Inhaled Oxygen Concentration - - Weight 108 kg (238 lb 3.2 oz) 03/17/2025 11:45 A M EDT Height 165.1 cm (5' 5 ) 03/17/2025 11:45 AM EDT Body Mass Index 39.64 03/17/2025 11:45 AM EDT Plan of Treatment Upcoming Encounters Date Type Department Care Team (Late st Contact Info) Description 07/20/2025 11:00 AM EDT Office Visit [facility] [address] [place] [phone] Jakub Sands, [address], [place] [address] Health Maintenance Due Date Last Done Comments Influenza Vaccine 07/11/2025 11/04/2024, , 09/06/2022, Additional history exists COVID-19 Vaccine ( season) 2025 08/16/2021, 07/18/2021 Postponed from 07/11/2024 (Vaccine Not Available) Medicare Annual Wellness Visit 01/06/2026 01/06/2025, 04/09/2023 Depression Screening 03/17/2026 03/17/2025 Fall Risk Screening 03/17/2026 03/17/2025 Tobacco Screening 03/17/2026 03/17/2025 Zoster (Shingles) Vaccine (2 of 3) 03/17/2026 11/30/2016 Postponed from 01/25/2017 (Vaccine Not Available) DTaP,Tdap and Td Vaccines (3 - Td or Tdap) 11/12/2033 11/12/2023, 03/28/2009 Medical Devices Not on file Procedures Procedure Name Priority Date/Time Associated Diagnosis Comments TSH Routine 03/17/2025 12:11 PM EDT Type 2 diabetes mellitus without complication, with long-term current use of insulin ([facility]) Obesity, morbid ([facility]) COMPREHENSIVE METABOLIC PANEL Routine 03/17/2025 12:11 PM EDT Essential hypertension HEMOGLOBIN A1C Routine 03/17/2025 12:11 PM EDT Type 2 diabetes mellitus without complication, with long-term current use of insulin ([facility]) LIPID PROFILE Routine 03/17/2025 12:11 PM EDT Mixed hyperlipidemia MICROALBUMIN / CREATININE URINE RATIO Routine 03/17/2025 12:11 PM EDT Type 2 diabetes mellitus without complication, with long-term current use of insulin ([facility]) from Last 3 Months Results * Microalbumin - Albumin: Creatinine Urine Ratio (03/17/2025 12:11 PM EDT) URINE CREATININE,RDM 122.27 mg/dL 03/17/2025 6:48 PM EDT [facility] MALB/CREAT RATIO 7.4 0.0 - 30.0 mg/g 03/17/2025 6:48 PM EDT [facility] MICROALBUMIN, URINE 0.9 0.0 - 1.9 mg/dL 03/17/2025 6:48 PM EDT [facility] Urine Urine specimen collection, clean catch / Unknown 03/17/2025 12:11 PM EDT 03/17/2025 12:11 PM EDT us Jakub Sands DO URINE ORDERABLES Final Resul t [facility] [address] [place] [address], [place] [phone] * TSH (03/17/2025 12:11 PM EDT) TSH 1.88 0.49 - 4.67 uIU/mL 03/17/2025 6:44 PM EDT [facility] Blood Venous blood / Unknown 03/17/2025 12:11 PM EDT 03/17/2025 12:11 PM EDT us Jakub Sands DO LAB BLOOD ORDERABLES Final R esult [facility] [address] [place] [address], * (ABNORMAL) Hemoglobin A1c (03/17/2025 12:11 PM EDT) HEMOGLOBIN A1C 6.5(H) 4.4 - 5.6 % 03/17/2025 7:30 PM EDT [facility] Comment: ADA Guidelines Result HgbA1c Normal : less than 5.7 % Prediabetes : 5.7 % to 6.4 % Diabetes : > 6.4 % Use with caution in patients with abnormal hemoglobin variants as the half-life of red blood cells and in vivo glycation rates are affected. EST. AVERAGE GLUCOSE 140 mg/dL 03/17/2025 7:30 PM EDT [facility] Blood Venous blood / Unknown 03/17/2025 12:11 PM EDT 03/17/2025 12:11 PM EDT Jakub Sands DO LAB BLOOD ORDERABLES Final R esult [facility] [address] [place] [address], * (ABNORMAL) Lipid profile (03/17/2025 12:11 PM EDT) CHOLESTEROL 102(L) 150 - 200 mg/dL 03/17/2025 6:34 PM EDT [facility] TRIGLYCERIDE 125 27 - 150 mg/dL 03/17/2025 6:34 PM EDT [facility] HDL CHOLESTEROL 39(L) >39 mg/dL 6:34 PM EDT [facility] Comment: HDL <40 mg/dL - High Risk HDL > or = 40mg/dL- Desirable HDL >60 mg/dL - Negative Risk LDL (CALC) 38 <130 mg/dL 03/17/2025 6:34 PM EDT [facility] Comment: LDL <100 mg/dL - Desirable LDL >160 mg/dL - High Risk CHOLESTEROL:HDL 2.6 1.0 - 5.0 6:34 PM EDT [facility] VERY LOW LIPOPROTEIN 25 0 - 30 mg/dL 03/17/2025 6:34 PM EDT [facility] Blood Venous blood / Unknown 03/17/2025 12:11 PM EDT 03/17/2025 12:11 PM EDT us Jakub Sands DO LAB BLOOD ORDERABLES Final R esult [facility] [address] [place] [address], [place] [phone] * (ABNORMAL) Comprehensive metabolic panel (03/17/2025 12:11 PM EDT) SODIUM 141 134 - 146 mmol/L 03/17/2025 6:34 PM EDT [facility] POTASSIUM 5.4(H) 3.5 - 5.0 mmol/L 03/17/2025 6:34 PM EDT [facility] CHLORIDE 106 98 - 109 mmol/L 03/17/2025 6:34 PM EDT [facility] CARBON DIOXIDE 25 22 - 32 mmol/L 03/17/2025 6:34 PM EDT [facility] ANION GAP 10 5 - 15 mmol/L 03/17/2025 6:34 PM EDT [facility] BLOOD UREA NITROGEN 26 5 - 27 mg/dL 03/17/2025 6:34 PM EDT [facility] CREATININE 0.87 0.40 - 1.00 mg/dL 03/17/2025 6:34 PM EDT [facility] Comment:METHOD TRACEABLE TO IDMS STANDARD GLUCOSE 119(H) 65 - 99 mg/dL 03/17/2025 6:34 PM EDT [facility] CALCIUM 9.0 8.5 - 10.5 mg/dL 03/17/2025 6:34 PM EDT [facility] TOTAL PROTEIN 6.6 6.0 - 8.0 g/dL 03/17/2025 6:34 PM EDT [facility] ALBUMIN 4.1 3.2 - 5.3 g/dL 03/17/2025 6:34 PM EDT [facility] ALKALINE PHOSPHATASE 67 39 - 130 U/L 03/17/2025 6:34 PM EDT [facility] AST 16 <=41 U/L 03/17/2025 6:34 PM EDT [facility] ALT 9 <=31 U/L 03/17/2025 6:34 PM EDT [facility] BILIRUBIN,TOTAL 0.6 0.3 - 1.2 mg/dL 03/17/2025 6:34 PM EDT [facility] EGFR Non-Race Dependent 68 >=60 ml/min/1.7 3sq.m 03/17/2025 6:34 PM EDT [facility] Comment: Reported eGFR is based on the CKD-EPI 2020 equation that does not use a race coefficient. Blood Venous blood / Unknown 03/17/2025 12:11 PM EDT 03/17/2025 12:11 PM EDT us Jakub Sands DO LAB BLOOD ORDERABLES Final R esult [facility] [address] [place] [address], from Last 3 Months Insurance MEDICARE COMMERCIAL Care Teams Learn To Swim Instructor Relationship Specialty Start Date End Date Jakub Sands DO [address], [facility] [place] [address] PCP - General Family Medicine 07/13/24 Salma Pacheco [facility] 08/12/24
--- OUTSIDE RECORDS SUMMARY | 2025-04-06 11:55 | XMS_ITS | Encounter Summary ---
Author Organization [employer] tem Address [id number] [address] [place] [address] Care Team Providers Care City Designer Name Role Phone Jakub Sands DO Primary Care Provider + [phone] Reason for Visit * Reason Comments Med Refill Encounter Details Date Type Department Care Team (Late Contact Info) Description 09/07/2022 Refill [facility] - [facility] Medicine [address] [place] [phone] Magali Del Cid, [employer] [address] [place] [address] Social History Tobacco Use Types Packs/Day Years [...] have Coronavirus / COVID-19? No / Unsure 09/05/2022 1:13 PM EDT documented as of this encounter Plan of Treatment Upcoming Encounters Date Type Department Care Team (Late Contact Info) Description 07/20/2025 11:00 AM EDT Office Visit [facility] Medicine [address] [place] [address] Jakub Sands DO [address] [place] [address] documented as of this encounter Visit Diagnoses Not on filedocumented in this encounter Care Teams City Designer Relationship Specialty Start Date End Date Shavon Jakub ChristianDO [address], [place] [address] PCP - General Family Medicine 07/13/24 Salma Pacheco [facility] Nurse - [facility] 08/12/24 documented as of this encounter
--- OUTSIDE RECORDS SUMMARY | 2025-04-06 11:55 | XMS_ITS | Encounter Summary ---
Author Organization [employer] tem Address [id number] [address] [place] [address] Care Team Providers Care Health Tech Name Role Phone Jakub Sands DO Primary Care Provider + [phone] Reason for Visit * Reason Comments Med Refill Encounter Details Date Type Department Care Team (Late Contact Info) Description 10/18/2022 Refill [facility] - Family Medicine [address] [place] [phone] Jakub Sands DO [address], [facility] [place] [address] Social History Tobacco Use Types Packs/Day Years [...] Description 07/20/2025 11:00 AM EDT [facility] [address] [place] [address] Jakub Sands DO [address], [place] [address] documented as of this encounter Visit Diagnoses Not on filedocumented in this encounter Care Teams Health Tech Relationship Specialty Start Date End Date Jakub Sands DO [address], [facility] [address] PCP - General Family Medicine 07/13/24 Salma Pacheco [facility] Nurse - [facility] 08/12/24 documented as of this encounter
--- OUTSIDE RECORDS SUMMARY | 2025-04-06 11:55 | XMS_ITS | Encounter Summary ---
Author Organization [email or web address] Sys tem Address [facility] [place]-[id number] [address] [place] [address] Care Team Providers Care Wardrobe Supervisor Name Role Phone Jakub Sands Primary Care Provider + [phone] Encounter Details Date Type Department Care Team (Late st Contact Info) Description 03/21/2025 Telephone [facility] - Family Medicine [address] [place] [address] Marry Garcia, JOJO Social History Tobacco Use Types Packs/Day Years Used Date Smoking Tobacco: Never Smokeless Tobacco: Never Alcohol Use Standard Drinks/Week Comments Defer 0 (1 standard drink = 0.6 oz pur e alcohol) [facility] Utilities Answer Date Recorded In the past 12 months has [employer] electric, gas, oil, or water company threatened [...] often do you attend chur ch or shinto services? Never 01/06/2025 Do you belong to any clubs o r organizations such as confucianist groups, unions, fraternal or athletic groups, or [...] Answer Date Recorded Total Score 0 03/17/2025 [facility] of Occupat ional Health - Occupational Stress [...] Recorded Do you need help finding a [employer] career center and/or a training program? No [...] Telephone Encounter - Marry Garcia CMA - 03/21/2025 10:44 AM EDT Sorry can you send that [facility] documented in this encounter Plan of Treatment Upcoming Encounters Date Type Department Care Team (Late st Contact Info) Description 07/20/2025 11:00 AM EDT Office Visit [facility] - Family Medicine [address] [place] [address] Jakub Sands DO [address], [facility] [place] [address] documented as of this encounter Visit Diagnoses Not on filedocumented in this encounter Additional Health Concerns Assessment Noted Time PHQ-9 Depression Total Score: 0 03/17/20 11:42 AM EDT A Body Mass Index follow-up plan has been documented for the patient 03/08/2024 12:59 PM EDT documented as of this encounter Care Teams Wardrobe Supervisor Relationship Specialty Start Date End Date Jakub Sands DO [address] [facility] [place] [address] PCP - General Family Medicine 07/13/24 Salma Pacheco [facility] Nurse - [employer] 08/12/24 documented as of this encounter
--- OUTSIDE RECORDS SUMMARY | 2025-04-06 11:55 | XMS_ITS | Encounter Summary ---
Author Organization [facility] tem Address [facility]-[id number] [address] [place] [address] Care Team Providers Care Cylinder Block Hole Reliner Name Role Phone aJkub Sands DO Primary Care Provider + [phone] Reason for Visit * Reason Comments Med Refill Encounter Details Date Type Department Care Team (Late st Contact Info) Description 02/27/2023 Refill [facility] - Family Medicine [address] [place] [phone] Magali Del Cid, MICROFILMING DOCUMENT PREPARER-RAIL SPECIALIST [address] [place] [address] Social History Tobacco Use Types Packs/Day Years Used Date Smoking Tobacco: Never Alcohol Use Standard Drinks/Week Comments Defer 0 (1 standard drink = 0.6 oz pur e alcohol) PHQ-2 Answer Date Recorded Total Score 0 02/11/2023 Childcare Answer Date Recorded Childcare Unknown 04/21/2019 [...] have Coronavirus / COVID-19? No / Unsure 02/11/2023 10:35 AM EDT documented as of this encounter Plan of Treatment Upcoming Encounters Date Type Department Care Team (Late Contact Info) Description 07/20/2025 11:00 AM EDT Office Visit [facility] - Family Medicine [address] [place] [address] Jakub Sands DO [address] [address] documented as of this encounter Visit Diagnoses Not on filedocumented in this encounter Additional Health Concerns Assessment Noted Time PHQ-9 Depression Total Score: 0 02/12/20 23 10:43 AM EDT A Body Mass Index follow-up plan has been documented for the patient 01/13/2023 6:57 AM EST documented as of this encounter Care Teams Cylinder Block Hole Reliner Relationship Specialty Start Date End Date Jakub Sands DO [address] [place] [address] PCP - General Family Medicine 07/13/24 Salma Pacheco [facility] 08/12/24 documented as of this encounter
--- OUTSIDE RECORDS SUMMARY | 2025-04-06 11:55 | XMS_ITS | Encounter Summary ---
Author Organization [facility] Address [facility]-[id number] [address] [place] [address] Care Team Providers Care Production Officer Name Role Phone Jakub Sands Primary Care Provider + [phone] Reason for Visit * Reason Onset Date Comments Labs Only 01/30/2023 Encounter Details Date Type Department Care Team (Late st Contact Info) Description 01/30/2023 [facility]phone [facility] [address] [place] [phone] Magali Del Cid, CUPOLA TENDER-ADOPTION COUNSELOR [address] [place] [address] Labs Only Social History Tobacco Use Types Packs/Day Years [...] PM EST documented as of this encounter Miscellaneous Notes * Telephone Encounter - Razia Morton - 01/30/2023 10:18 AM EDT Patient is coming in for a dm appt and she would like labs sent to [facility]. Thanks documented in this encounter Plan of Treatment Upcoming Encounters Date Type Department Care Team (Late st Contact Info) Description 07/20/2025 11:00 AM EDT Office Visit [facility] - Family Medicine [address] [place] [address] Jakub Sands DO [address], [facility] [place] [address] documented as of this encounter Visit Diagnoses Not on filedocumented in this encounter Additional Health Concerns Assessment Noted Time PHQ-9 Depression Total Score: 0 01/10/20 1:09 PM EST A Body Mass Index follow-up plan has been documented for the patient 01/13/2023 6:57 AM EST documented as of this encounter Care Teams Production Officer Relationship Specialty Start Date End Date Jakub Sands DO [address] [facility] [place] [address] PCP - General Family Medicine 07/13/24 Salma Pacheco CCM Nurse - [facility] 08/12/24 documented as of this encounter
--- OUTSIDE RECORDS SUMMARY | 2025-04-06 11:55 | XMS_ITS | Encounter Summary ---
Author Organization [employer] tem Address [facility] [place]-[id number] [address] [place] [address] Care Team Providers Care Industry Analyst Name Role Phone Jakub Sands Primary Care Provider + [phone] Encounter Details Date Type Department Care Team (Late st Contact Info) Description 04/01/2025 Refill [facility] - Family Medicine [address] [place] [phone] Maddy Baxter CMA Dizziness Social History Tobacco Use Types Packs/Day Years Used Date Smoking Tobacco: Never Smokeless Tobacco: Never Alcohol Use Standard Drinks/Week Comments Defer 0 (1 standard drink = 0.6 oz pur e alcohol) [facility] Utilities Answer Date Recorded In the past 12 months has e electric, gas, oil, or water company [...] often do you attend chur ch or sikhism services? Never 01/06/2025 Do you belong to any clubs o r organizations such as pentecostalism groups, unions, fraternal or athletic groups, or [...] Answer Date Recorded Total Score 0 03/17/2025 [facility] of Occupat ional Health - Occupational Stress [...] Recorded Do you need help finding a [facility] career center and/or a training program? No [...] - Family Medicine [address] [place] [address] Jakub Sands DO [address] [place] [address] documented as of this encounter Visit Diagnoses Diagnosis Dizziness Dizziness and giddiness documented in this encounter Additional Health Concerns Assessment Noted Time PHQ-9 Depression Total Score: 0 03/17/20 11:42 AM EDT A Body Mass Index follow-up plan has been documented for the patient 03/08/2024 12:59 PM EDT documented as of this encounter Care Teams Industry Analyst Relationship Specialty Start Date End Date Jaukb Sands DO [address] [place] [address] PCP - General Family Medicine 07/13/24 Salma Pacheco CCM [facility] 08/12/24 documented as of this encounter
--- OUTSIDE RECORDS SUMMARY | 2025-04-06 11:55 | XMS_ITS | Encounter Summary ---
Author Organization [employer] [facility] tem Address [facility] [place][id number] [address] [place] [address] Care Team Providers Care Tour Conductor Name Role Phone Jakub Sands DO Primary Care Provider + [phone] Encounter Details Date Type Department Care Team (Late Contact Info) Description 04/03/2023 Telephone [facility] - Family Medicine [address] [place] [address] Marilyn Mao CMA Social History Tobacco Use [...] Telephone Encounter - Marilyn Mao CMA - 04/03/2023 11:39 AM EDT Patient called today because she called the other day for her needles for her insulin and nothing was called in to [facility]. Can you please do it? documented in this encounter Plan of Treatment Upcoming Encounters Date Type Department Care Team ([facility] Contact Info) Description 07/20/2025 11:00 AM EDT Office Visit [facility] - Family Medicine [address] [place] [address] Jakub Sands DO [address] [address] documented as of this encounter Visit Diagnoses Not on filedocumented in this encounter Additional Health Concerns Assessment Noted Time PHQ-9 Depression Total Score: 0 02/12/20 23 10:43 AM EDT A Body Mass Index follow-up plan has been documented for the patient 01/13/2023 6:57 AM EST documented as of this encounter Care Teams Tour Conductor Relationship Specialty Start Date End Date Jakub Sands DO [address] [facility] [address] PCP - General Family Medicine 07/13/24 Salma Pacheco [facility] 08/12/24 documented as of this encounter
--- OUTSIDE RECORDS SUMMARY | 2025-04-06 11:55 | XMS_ITS | Encounter Summary ---
Author Organization [facility] tem Address [facility][id number] [address] [place] [address] Care Team Providers Care Restoration Silversmith Name Role Phone Jakub Sands DO Primary Care Provider + [phone] Encounter Details Date Type Department Care Team ([facility] Contact Info) Description 04/03/2023 Orders Only [facility] - Family Medicine [address] [place] [address] Magali Del Cid, STRATEGY DIRECTOR-DEHYDROGENATION SUPERVISOR [address] [place], [place] [id number] Type 2 diabetes mellitus without complication, with long-term current use of insulin ([facility]) (Primary Dx) Social History Tobacco Use Types Packs/Day Years [...] Medicine - Family Medicine [address] [place] [address] Jakub Sands DO [address], [place] [address] documented as of this encounter Visit Diagnoses Diagnosis Type 2 diabetes mellitus without complication, with long-term current use of insulin ([facility])- Primary documented in this encounter Additional Health Concerns Assessment Noted Time PHQ-9 Depression Total Score: 0 02/12/20 10:43 AM EDT A Body Mass Index follow-up plan has been documented for the patient 01/13/2023 6:57 AM EST documented as of this encounter Care Teams Restoration Silversmith Relationship Specialty Start Date End Date Jakub Sands DO [address], [facility] [place] [address] PCP - General Family Medicine 07/13/24 Salma Pacheco CCM [facility] 08/12/24 documented as of this encounter
--- OUTSIDE RECORDS SUMMARY | 2025-04-06 11:55 | XMS_ITS | Encounter Summary ---
Author Organization [employer] s tem Address [facility][id number] [address] [place] [address] Care Team Providers Care Physicist Nuclear Name Role Phone Jakub Sands DO Primary Care Provider + [phone] Reason for Visit * Reason Comments Med Refill Encounter Details Date Type Department Care Team (Late Contact Info) Description 11/28/2022 Refill [facility] - Family Medicine [address] [place] [address] Magali Del Cid, NUVIA-LOGISTICS SUPERVISOR [address] [place] [address] Social History Tobacco Use Types Packs/Day Years Used Date Smoking Tobacco: Never Alcohol Use Standard Drinks/Week Comments Defer 0 (1 standard drink = 0.6 oz pur e alcohol) Childcare Answer Date Recorded Childcare Unknown 04/21/2019 [...] have Coronavirus / COVID-19? No / Unsure 11/28/2022 2:13 PM EST documented as of this encounter Plan of Treatment Upcoming Encounters Date Type Department Care Team (Late Contact Info) Description 07/20/2025 11:00 AM EDT Office Visit [facility] - Family Medicine [address] [place] [address] Jakub Sands DO [address], [place] [address] documented as of this encounter Visit Diagnoses Not on filedocumented in this encounter Care Teams Physicist Nuclear Relationship Specialty Start Date End Date Jakub Sands DO [address], [place] [address] PCP - General Family Medicine 07/13/24 Salma Pacheco CCM Nurse - [facility] 08/12/24 documented as of this encounter
--- OUTSIDE RECORDS SUMMARY | 2025-04-06 11:55 | XMS_ITS | Encounter Summary ---
Author Organization [employer] s tem Address [facility][id number] [address] [place] [address] Care Team Providers Care Derrick Worker Well Service Name Role Phone Jakub Sands DO Primary Care Provider + [phone] Reason for Visit * Reason Comments Med Refill Encounter Details Date Type Department Care Team (Late Contact Info) Description 10/18/2022 Refill [facility] - Family Medicine [address] [place] [address] Jakub Sands DO [address], [facility] [address] Social History Tobacco Use Types Packs/Day Years [...] Description 07/20/2025 11:00 AM EDT [facility] [address] [place] [address] Jakub Sands DO [address], [place] [address] documented as of this encounter Visit Diagnoses Not on filedocumented in this encounter Care Teams Derrick Worker Well Service Relationship Specialty Start Date End Date Jakub Sands DO [address], [facility] [place] [address] PCP - General Family Medicine 07/13/24 Salma Pacheco [facility] Nurse - [facility] 08/12/24 documented as of this encounter
--- OUTSIDE RECORDS SUMMARY | 2025-04-06 11:55 | XMS_ITS | Encounter Summary ---
Author Organization [employer] tem Address [facility]-[id number] [address] [place] [address] Care Team Providers Care Kiln Mechanic Name Role Phone Jakub Sands DO Primary Care Provider + [phone] Reason for Visit * Reason Comments Med Refill Encounter Details Date Type Department Care Team (Late Contact Info) Description 09/16/2022 Refill [facility] - Family Medicine [address] [place] [address] Magali Del Cid, CLEARING DISTRIBUTION CLERK-ELIGIBILITY EXAMINER [address] [place] [address] Social History Tobacco Use Types Packs/Day Years [...] Medicine [address] [place] [address] Jakub Sands DO [address] [place] [address] documented as of this encounter Visit Diagnoses Not on filedocumented in this encounter Care Teams Kiln Mechanic Relationship Specialty Start Date End Date Shavon Jakub ChristianDO [address], [place] [address] PCP - General Family Medicine 07/13/24 Salma Pacheco [facility] Nurse - [facility] 08/12/24 documented as of this encounter
--- OUTSIDE RECORDS SUMMARY | 2025-04-06 11:55 | XMS_ITS | Encounter Summary ---
Author Organization [employer] s tem Address [facility] [id number] [address] [place] [address] Care Team Providers Care Environmental Project Manager Name Role Phone Jakub Sands DO Primary Care Provider + [phone] Reason for Visit * Reason Comments Med Refill Encounter Details Date Type Department Care Team (Late st Contact Info) Description 03/04/2023 Refill [facility] - Family Medicine [address] [place] [address] Magali Del Cid, PEARL HAND-FOOD TRAY ASSEMBLER [address] [place] [address] Social History Tobacco Use Types Packs/Day Years [...] Medicine - Family Medicine [address] [place] [address] Jakub Sands DO [address] [facility] [place] [address] documented as of this encounter Visit Diagnoses Not on filedocumented in this encounter Additional Health Concerns Assessment Noted Time PHQ-9 Depression Total Score: 0 02/12/20 23 10:43 AM EDT A Body Mass Index follow-up plan has been documented for the patient 01/13/2023 6:57 AM EST documented as of this encounter Care Teams Environmental Project Manager Relationship Specialty Start Date End Date Jakub Sands DO [address] [facility] [place] [address] PCP - General Family Medicine 07/13/24 Salma Pacheco [facility] 08/12/24 documented as of this encounter
--- OUTSIDE RECORDS SUMMARY | 2025-04-06 11:55 | XMS_ITS | Encounter Summary ---
Author Organization [employer] s tem Address [facility]-[id number] [address] [place] [address] Care Team Providers Care Multimedia Services Manager Name Role Phone Jakub Sands DO Primary Care Provider + [phone] Reason for Visit * Reason Onset Date Comments Med Refill 04/03/2023 Encounter Details Date Type Department Care Team (Late st Contact Info) Description 04/03/2023 Refill [facility] - Family Medicine [address] [place] [address] Marilyn Mao CMA Social History Tobacco Use [...] Medicine - Family Medicine [address] [place] [address] Jakub Sands DO [address], [facility] [place] [address] documented as of this encounter Visit Diagnoses Not on filedocumented in this encounter Additional Health Concerns Assessment Noted Time PHQ-9 Depression Total Score: 0 02/12/20 23 10:43 AM EDT A Body Mass Index follow-up plan has been documented for the patient 01/13/2023 6:57 AM EST documented as of this encounter Care Teams Multimedia Services Manager Relationship Specialty Start Date End Date Jakub Sands DO [address] [facility], [place] [address] PCP - General Family Medicine 07/13/24 Salma Pacheco [facility] 08/12/24 documented as of this encounter
--- OUTSIDE RECORDS SUMMARY | 2025-04-06 11:55 | XMS_ITS | Encounter Summary ---
Author Organization [employer] Address [facility][id number] [address] [place] [address] Care Team Providers Care Consulting Sales Manager Name Role Phone Jakub Sands Primary Care Provider + [phone] Reason for Visit * Reason Comments Med Refill Encounter Details Date Type Department Care Team (Late st Contact Info) Description 04/01/2023 Refill [facility] - Family Medicine [address] [place] [address] Magali Del Cid, MARKETING SERVICES REP-LOAN SERVICING REPRESENTATIVE [address] [address] Social History Tobacco Use Types Packs/Day Years [...] encounter Miscellaneous Notes * Telephone Encounter - Juli Lopez CMA - 04/01/2023 9:54 AM EDT Pt called and also said she needs pen needles as well. BD Subha GEN PEN NDL 32Gx 4mm GRN is what she currently has. documented in this encounter Plan of Treatment Upcoming Encounters Date Type Department Care Team (Late st Contact Info) Description 07/20/2025 11:00 AM EDT Office Visit [facility] - Family Medicine [address] [place] [address] Jakub Sands DO [address], [facility] [place] [address] documented as of this encounter Visit Diagnoses Not on filedocumented in this encounter Additional Health Concerns Assessment Noted Time PHQ-9 Depression Total Score: 0 02/12/20 23 10:43 AM EDT A Body Mass Index follow-up plan has been documented for the patient 01/13/2023 6:57 AM EST documented as of this encounter Care Teams Consulting Sales Manager Relationship Specialty Start Date End Date Jakub Sands DO [address] [place] [address] PCP - General Family Medicine 07/13/24 Salma Pacheco CCM Nurse - [facility] 08/12/24 documented as of this encounter
--- OUTSIDE RECORDS SUMMARY | 2025-04-06 11:55 | XMS_ITS | Encounter Summary ---
Author Organization [employer] tem Address [facility] [id number] [address] [place] [address] Care Team Providers Care Enrolled Nurse Name Role Phone Jakub Sands DO Primary Care Provider + [phone] Encounter Details Date Type Department Care Team (Late st Contact Info) Description 03/16/2025 Telephone [facility] - Family Medicine [address] [place] [phone] Jakub Sands DO [address], [facility] [place] [address] Social History Tobacco Use Types Packs/Day Years Used Date Smoking Tobacco: Never Smokeless Tobacco: Never Alcohol Use Standard Drinks/Week Comments Defer 0 (1 standard drink = 0.6 oz pur e alcohol) [facility] Utilities Answer Date Recorded In the past 12 months has [employer] electric, gas, oil, or water company threatened [...] often do you attend chur ch or pentecostal services? Never 01/06/2025 Do you belong to any clubs o r organizations such as orthodox groups, unions, fraternal or athletic groups, or [...] Answer Date Recorded Total Score 0 03/17/2025 [facility] of Occupat ional Health - Occupational [...] Recorded Do you need help finding a [place] [employer] career center and/or a training program? No [...] - Family Medicine [address] [place] [address] Jakub Sands DO [address] [facility] [place] [address] documented as of this encounter Visit Diagnoses Diagnosis Essential hypertension- Primary Unspecified essential hypertension Chronic heart failure with preserved ejection fraction (CMS-HCC) documented in this encounter Additional Health Concerns Assessment Noted Time PHQ-9 Depression Total Score: 0 01/06/20 25 3:47 PM EST A Body Mass Index follow-up plan has been documented for the patient 03/08/2024 12:59 PM EDT documented as of this encounter Care Teams Enrolled Nurse Relationship Specialty Start Date End Date Jakub Sands DO [address] [facility] [place] [address] PCP - General Family Medicine 07/13/24 Salma Pacheco CCM Nurse - [employer] 08/12/24 documented as of this encounter
--- OUTSIDE RECORDS SUMMARY | 2025-04-06 11:55 | XMS_ITS | Encounter Summary ---
Author Organization [employer] s tem Address [id number] [address] [place] [address] Care Team Providers Care Retail Sales Merchandiser Name Role Phone Jakub Sands DO Primary Care Provider + [phone] Reason for Visit * Reason Comments Med Refill Encounter Details Date Type Department Care Team (Late Contact Info) Description 12/31/2022 Refill [facility] Internal [facility] - Family Medicine [address] [place] [phone] Magali Del Cid, NUVIA-CHEMICAL LABORATORY CHIEF [address] [place] [address] [place] [address] Social History Tobacco Use Types Packs/Day Years [...] - Family Medicine [address] [place] [phone] Jakub Sands DO [address], [facility] [place], [place] [address] documented as of this encounter Visit Diagnoses Not on filedocumented in this encounter Care Teams Retail Sales Merchandiser Relationship Specialty Start Date End Date Jakub Sands DO [address], [place] [place] [address] PCP - General Family Medicine 07/13/24 Salma Pacheco [facility]12/24 documented as of this encounter
--- OUTSIDE RECORDS SUMMARY | 2025-04-06 11:55 | XMS_ITS | Encounter Summary ---
Author Organization [employer] s tem Address [id number] [address] [place] [address] Care Team Providers Care Adjuster Electrical Contacts Name Role Phone Jakub Sands DO Primary Care Provider + [phone] Reason for Visit * Reason Comments Med Refill Encounter Details Date Type Department Care Team (Late st Contact Info) Description 04/09/2023 Refill [facility] - Family Medicine [address] [place] [phone] Magali Del Cid, NURSING HOME ASSISTANT ADMINISTRATOR-SURGICAL PROCESSOR [address] [place] [address] [place] [address] Social History Tobacco Use Types Packs/Day Years [...] Medicine - Family Medicine [address] [place] [address] Jakub Sands DO [address], [facility] [place] [address] documented as of this encounter Visit Diagnoses Not on filedocumented in this encounter Additional Health Concerns Assessment Noted Time PHQ-9 Depression Total Score: 0 04/09/20 23 10:25 AM EDT A Body Mass Index follow-up plan has been documented for the patient 01/13/2023 6:57 AM EST documented as of this encounter Care Teams Adjuster Electrical Contacts Relationship Specialty Start Date End Date Jakub Sands DO [address] [facility] [place] [address] PCP - General Family Medicine 07/13/24 Salma Pacheco [facility] Nurse - [facility] 08/12/24 documented as of this encounter
--- OUTSIDE RECORDS SUMMARY | 2025-04-06 11:55 | XMS_ITS | Encounter Summary ---
Author Organization [employer] s tem Address [facility]-[id number] [address] [place] [address] Care Team Providers Care Timber Killer Name Role Phone Jakub Sands DO Primary Care Provider + [phone] Reason for Visit * Reason Comments Med Refill Encounter Details Date Type Department Care Team (Late Contact Info) Description 08/01/2022 Refill [facility] - Family Medicine [address] [place] [address] Magali Del Cid, NUVIA-TREAD BOOKER [address] [facility] [place] [address] Social History Tobacco Use Types Packs/Day Years [...] have Coronavirus / COVID-19? No / Unsure 07/26/2022 10:27 AM EDT documented as of this encounter Plan of Treatment Upcoming Encounters Date Type Department Care Team (Late Contact Info) Description 07/20/2025 11:00 AM EDT [facility] [address] [place] [address] Jakub Sands DO [address], [place] [address] documented as of this encounter Visit Diagnoses Not on filedocumented in this encounter Care Teams Timber Killer Relationship Specialty Start Date End Date Jakub Sands DO [address], [place] [address] PCP - General Family Medicine 07/13/24 Salma Pacheco [facility] Nurse - [facility] 08/12/24 documented as of this encounter
--- OUTSIDE RECORDS SUMMARY | 2025-04-06 11:55 | XMS_ITS | Clinical Summary ---
Author Organization [facility] Address [address] [place] [address] Phone Care Team Providers Care Business Programmer Name Role Phone Unavailable Primary Care Provider Unavailabl e Social History Tobacco Use Types Packs/Day Years Used Date Smoking Tobacco: Never Assessed Comments Unknown Sex and Gender Information Value Date Recorded Sex Assigned at Not on file Legal Sex Female 5:07 AM EDT Gender Identity Not on file Sexual Orientation Not on file Plan of Treatment Not on file
--- OUTSIDE RECORDS SUMMARY | 2025-04-06 11:55 | XMS_ITS | Encounter Summary ---
Author Organization [employer] Sys tem Address [facility]-[id number] [address] [place] [address] Care Team Providers Care Category Development Manager Name Role Phone Jakub Sands Primary Care Provider + [phone] Encounter Details Date Type Department Care Team (Late st Contact Info) Description 11/04/2024 Telephone [facility] - Family Medicine [address] [place] [phone] Marry Garcia, JOJO Social History Tobacco Use Types Packs/Day Years Used Date Smoking Tobacco: Never Smokeless Tobacco: Never Alcohol Use Standard Drinks/Week Comments Defer 0 (1 standard drink = 0.6 oz pur e alcohol) [facility] Utilities Answer Date Recorded In the past 12 months has [employer] electric, gas, oil, or water company threatened [...] often do you attend chur ch or roman catholic services? Never 09/03/2024 Do you belong to any clubs o r organizations such as adventism groups, unions, fraternal or athletic groups, or [...] Answer Date Recorded Total Score 0 06/03/2024 [facility] - Occupational [...] Recorded Do you need help finding a [facility] and/or a training program? No [...] Telephone Encounter - Marry Garcia CMA - 11/04/2024 4:21 PM EST Pt called stated she needs a referral/ PA for her chris for next year before her insurance expires at the end of the year. [facility] [phone] documented in this encounter Plan of Treatment Upcoming Encounters Date Type Department Care Team (Late st Contact Info) Description 07/20/2025 11:00 AM EDT Office Visit [facility] - Family Medicine [address] [place] [address] Jakub Sands DO [address], [facility] [place] [address] documented as of this encounter Visit Diagnoses Not on filedocumented in this encounter Additional Health Concerns Assessment Noted Time PHQ-9 Depression Total Score: 0 06/03/20 24 2:58 PM EDT A Body Mass Index follow-up plan has been documented for the patient 03/08/2024 12:59 PM EDT documented as of this encounter Care Teams Category Development Manager Relationship Specialty Start Date End Date Jakub Sands DO [address] [facility] [place] [address] PCP - General Family Medicine 07/13/24 Salma Pacheco [facility] 08/12/24 documented as of this encounter
--- OUTSIDE RECORDS SUMMARY | 2025-04-06 11:55 | XMS_ITS | Encounter Summary ---
Author Organization [employer] Sys tem Address [facility][id number] [address] [place] [address] Care Team Providers Care Cell Repairer Name Role Phone Jakub Sands DO Primary Care Provider + [phone] Encounter Details Date Type Department Care Team ([facility] Contact Info) Description 04/09/2023 Orders Only [facility] - Family Medicine [address] [place] [phone] External, Scanning Provider Social History Tobacco Use Types Packs/Day Years [...] Upcoming Encounters Date Type Department Care Team ([facility] Contact Info) Description 07/20/2025 11:00 AM EDT Office Visit [facility] - Family Medicine [address] [place] [phone] Jakub Sands DO [address], [facility] [place] [address] documented as of this encounter Procedures Procedure Name Priority Date/Time Associated Diagnosis Comments HOME SLEEP STUDY Routine 04/09/2023 HM MAMMOGRAPHY Routine 04/09/2023 documented in this encounter Results * Home sleep study (04/09/2023) us Scanning Provider External SLEEP CENTER ORDERABL ES Final Result MANUALLY TRANSCRIBED RESULTS * HM MAMMOGRAPHY (04/09/2023) Anatomical Region Laterality Modality Other us Scanning [...] documented as of this encounter Care Teams Cell Repairer Relationship Specialty Start Date End Date Jakub Sands DO [address] [facility], [place] [address] PCP - General Family Medicine 07/13/24 Salma Pacheco [facility] Nurse - [facility] 08/12/24 documented as of this encounter
--- NOTE | 2025-04-06 11:59 | MR_ITS ---
[address] [address] Patient Name: GIOVANI MIRANDA MRN: [id number] date: 1945 Sex: F Assigned Patient Location: MRI Current Patient Location: MRI Accession/Order Number: [id number] Exam Date: 04/06/2025 14:20 Report Date: 04/06/2025 14:23 At the request of: JO CORRALES Procedure: MR head/brain wo con MR head/brain wo con 04/06/2025 1:31 PM SIGN AND SYMPTOMS: Intermittent dizziness PROTOCOL: Multiplanar multisequence MR images of the brain were obtained without IV contrast COMPARISON: None. FINDINGS: Extra axial spaces: Age appropriate. Hemorrhage: None. Ventricular system: Within normal limits. Basal cisterns: Within normal limits and not effaced. Cerebral parenchyma: Nonspecific T2 and FLAIR hyperintense foci are noted in the periventricular and subcortical white matter suggesting chronic microvascular ischemic change. Midline shift: None.. Cerebellum: Within normal limits. Brainstem: Within normal limits. OTHER: Calvarium: Normal marrow signal. Vascular system: Satisfactory flow voids within the anterior and posterior circulation. Visualized Paranasal sinuses: Within normal limits. There is a small left mastoid effusion. Visualized Orbits: Within normal limits. Visualized upper cervical spine: Within normal limits. Sella and skull base: Within normal limits. MR/MR head/brain wo con IMPRESSION: No acute intracranial pathology. Chronic microvascular ischemic changes are noted. There is a small left mastoid effusion. Impression dictated by: Bryce Horne M.D. 04/06/2025 2:23 PM Dictation Location: [place] [address] Electronically authenticated by: [id number] Y Date: 04/06/2025 14:23
== END 2025-04-06 11:53 | disposition home or self-care (01) ==
LOC: MRI 11:52
PROVIDERS: PCP Family Medicine; Visit Provider Family Medicine
DX: R42 Dizziness and giddiness (principal); H74.8X2 Other specified disorders of left middle ear and mastoid
CPT/HCPCS: 70551